=== PATIENT | female | born 1940 | race Caucasian/White ===

== ENCOUNTER 2020-09-13 17:51 | Emergency (ER) | payer MEDICARE, MEDICAID, SELFPAY ==
--- NOTE | ~2020-09-13 | CT_ITS ---
EXAMINATION: CT brain wo con DATE: 09/13/2020 18:40 INDICATION: Headache. TECHNIQUE: Computed tomography (CT) of the head was performed without intravenous contrast. The mA wa s adjusted according to patient size. Iterative reconstruction technique was employed. The dose-lengt h product was 605.33 mGy-cm. COMPARISON: Head CT 03/30/2017, brain MRI 07/02/2012 FINDINGS: There are scattered areas of low attenuation in the cerebral white matter. There is no intr acranial hemorrhage, acute infarction, or abnormal intracranial mass lesion. The ventricles are pato l in size. There is mild mucosal thickening in the paranasal sinuses. The mastoid air cells are pato l. The orbits are normal. IMPRESSION: 1. Stable mild nonspecific cerebral white matter disease, which likely represents chronic small vesse l ischemic disease. Reviewed, dictated and finalized at location A. IMPRESSION: 1. Stable mild nonspecific cerebral white matter disease, which likely represen ts chronic small vessel ischemic disease.
[2020-09-13 17:49] VITALS: BP 155/74; PULSE 61; RESP 14; TEMP 36.4; O2SAT 100
[2020-09-13 19:03] LABS: Basophils Percent Auto 0.3 % (0.2-1.2); Eosinophils Absolute Auto 0.2 K/mm3 (0-0.3); Eosinophils Percent Auto 3.2 % (0-4.4); Hematocrit 39.9 % (37.0-47.0); Hemoglobin 12.3 g/dL (12.0-15.0); Immature Granulocyte Absolute 0.01 K/mm3 (0.00-0.031); Immature Granulocyte Percent A 0.2 % (0-0.5); Lymphocytes Absolute Auto 2.75 K/mm3 (0.9-3.2); Lymphocytes Percent Auto 45.8 % (18.3-44.2); Mean Corpuscular HGB Conc 30.8 g/dl (32-36); Mean Corpuscular Volume 90.9 fl (80-100); Mean Platelet Volume 8.9 fl (7.4-10.4); Monocytes Absolute Auto 0.5 K/mm3 (0.1-0.6); Monocytes Percent Auto 7.8 % (2.6-8.5); Neutrophils Absolute Auto 2.6 K/mm3 (1.3-6.7); Neutrophils Percent Auto 42.7 % (45.5-73.1); Platelet Count Result 166 k/mm3 (150-375); Red Blood Count 4.39 M/mm3 (4.2-5.4); Red Cell Distribution Width 13.5 % (11.5-14.5)
[2020-09-13 19:12] LABS: Potassium 4.3 mmol/L (3.4-5.0)
[2020-09-13 19:19] LABS: Anion Gap 5 mmol/L (8-16); Blood Urea Nitrogen 20 mg/dL (7-17); Calcium 9.2 mg/dL (8.4-10.2); Carbon Dioxide 30 mmol/L (22-30); Chloride 102 mmol/L (98-107); Estimated Glomerular Filt Rate 48; Glucose 95 mg/dL (65-105); Sodium 137 mmol/L (137-145)
--- NOTE | 2020-09-13 19:40 | ED.HA ---
HPI - Headache General Chief Complaint: Headache Stated Complaint: Resolved MCCLURE Time Seen by Provider: 09/13/20 18:07 Source: patient Mode of arrival: EMS Limitations: no limitations History of Present Illness HPI Narrative: 80-year-old with a history of dementia, Parkinson's was brought in ambulance from [facility] with complaints of right-sided headache and blurred vision. Patient states that headache lasted for few hours however by the time she came to the ER her symptoms have much subsided. She denies previous history of headaches. No history of trauma. MD elicited complaint: headache Onset description: suddenly Location: right Severity: moderate Quality & Timing: aching Exacerbating factors: none Relieving factors: nothing Context: occurred at rest Associated symptoms: other (blurred vision) Treatments prior to arrival: none Related Data Home Medications Medication Instructions Recorded Confirmed brimonidine [Alphagan P] drp 09/13/20 09/13/20 carbidopa-levodopa tablet 09/13/20 citalopram mg 09/13/20 donepezil mg 09/13/20 dorzolamide-timolol 09/13/20 latanoprost drp 09/13/20 oxybutynin chloride mg PO 09/13/20 ropinirole mg 09/13/20 Allergies Allergy/AdvReac Type Severity Reaction Status Date / Time No Known Allergies Allergy Verified 09/13/20 18:12 Review of Systems Review of Systems: All systems reviewed & are unremarkable except as noted in HPI and below Constitutional: Constitutional: Reports no additional constitutional complaints Eyes: Eyes: Reports as per HPI ENT: Reports system reviewed and no additional complaints, except as documented Cardiovascular: Cardiovascular: Reports no additional cardiovascular complaints Respiratory: Respiratory: Reports no additional respiratory complaints Gastrointestinal: Gastrointestinal: Reports no additional gastrointestinal complaints Musculoskeletal: Musculoskeletal: Reports no additional musculoskeletal complaints Endocrine: Endocrine: Reports no additional endocrine complaints Hematologic/Lymphatic: Hematologic/Lymphatic: Reports no additional hematologic/lymphatic complaints Allergic/Immunologic: Allergic/Immunologic: Reports no additional allergic/immunologic complaints Exam Narrative: Exam Narrative: GENERAL: Well-appearing, well-nourished, and in no acute distress. HEAD: Normocephalic, atraumatic. EYES: PERRLA and EOMI. NECK: Supple. CHEST: Clear to auscultation. No respiratory distress. HEART: Regular rate and rhythm. No murmur heard. Normal peripheral pulses. ABDOMEN: Soft, nontender, nondistended, normal active bowel sounds. EXTREMITIES: Normal range of motion. No edema. SKIN: Warm, dry, no rash. NEURO: No focal deficits. Alert and oriented x3. PSYCH: Normal mood and affect. Course Course Emergency Course: Patient comfortably lying on bed in no discomfort. She states that she is feeling better the headache has resolved. I discussed labs and CT findings with the patient and the family. She does feel comfortable going home. She drank glass of water without any difficulty. Vital Signs Vital signs: Vital Signs Temperature 36.4 C 09/13/20 17:49 Pulse Rate 61 09/13/20 17:49 Respiratory Rate 14 09/13/20 17:49 Blood Pressure 155/74 H 09/13/20 17:49 Pulse Oximetry 100 09/13/20 17:49 Temperature 36.4 C 09/13/20 17:49 Pulse Rate 61 09/13/20 17:49 Respiratory Rate 14 09/13/20 17:49 Blood Pressure 155/74 H 09/13/20 17:49 Pulse Oximetry 100 09/13/20 17:49 MDM - Headache Lab Data Result diagrams: 09/13/20 18:57 09/13/20 18:57 Labs: Lab Results 09/13/20 09/13/20 Range/Units 18:57 18:57 WBC 6.0 (4.5-10.0) K/mm3 RBC 4.39 (4.2-5.4) M/mm3 Hgb 12.3 (12.0-15.0) g/dL Hct 39.9 (37.0-47.0) % MCV 90.9 (80-100) fl MCH 28.0 (26-34) pg MCHC 30.8 L (32-36) g/dl RDW 13.5 (11.5-14.5) % Plt Count 166 (150-375) k/mm3 MPV 8.9 (7.4
[2020-09-13 19:54] LABS: Erythrocyte Sedimentation Rate 18 mm/hr (0-20)
--- NOTE | 2020-09-13 20:11 | PC.NURSE ---
converse with ruth ann @ [facility], advised pt is stable to transfer by wheel chair to car and nursing staff @ [facility] will be ready with a wheelchair upon pt arrival by sons car.
--- NOTE | 2020-09-13 20:26 | PC.NURSE ---
pt has difficulty going from comod to wheel chair son has a high suv, pt is a fall risk, called ems for transport.
[2020-09-13 21:08] VITALS: BP 149/66; PULSE 71; RESP 20; O2SAT 98
== END 2020-09-13 21:50 ==
PROVIDERS: Emergency Provider Family Medicine
DX: R51.9 Headache, unspecified (principal); G20 Parkinson's disease; F03.90 Unspecified dementia, unspecified severity, without behavioral disturbance, psychotic disturbance, mood disturbance, and anxiety; R90.82 White matter disease, unspecified
CPT/HCPCS: 36415; 70450; 80048; 85025; 85652; 99284

== ENCOUNTER 2020-09-21 07:57 | Inpatient (IN) | payer MEDICARE, MEDICAID, SELFPAY ==
[2020-09-21] VITALS (30 sets, daily range): BP systolic 122–165; BP diastolic 49–94; PULSE 58–76; RESP 10–20; TEMP 36.6–37.4; O2SAT 91–100
--- NOTE | ~2020-09-21 | MR_ITS ---
EXAMINATION: MR brain/brain stem wo/w con EXAM DATE: 09/22/2020 15:44 INDICATION: Stroke, alteration of awareness. Left facial droop. TECHNIQUE: Magnetic resonance imaging (MRI) of the brain/brain stem obtained without contrast. Sagit vinayak T1, axial diffusion, gradient echo (T2*), T1, T2, FLAIR sequences obtained. Patient was then inj ected with 18 cc intravenous Multihance contrast. Axial and coronal postcontrast T1 weighted sequence s obtained. Correlation is made to head CT from yesterday. FINDINGS: Multiple scattered acute infarctions in the right middle cerebral artery distribution mostl y involving the periventricular white matter. Distribution does suggest possibility of watershed infa rctions. Additionally, the flow voids in the distal aspects of the internal carotid arteries are asym metric with the right being approximately half the caliber of the left. Proximal to the carotid sipho n the parasellar internal carotid arteries appear roughly identical in caliber. There is mild to mode rate microangiopathy. Mild to moderate central atrophy and microangiopathy. There is no acute hemorrhage seen on the T2*, a hemosiderin sensitive sequence. No intraparenchymal brain mass. The ventricles are normal in size. There are no extra-axial collections. The orbits are unremarkable. Soft tissue is unremarkable. IMPRESSION: 1. Diminished caliber to the right ICA compared to contralateral side, with transition at the caroti d siphon segment. Could indicate right carotid siphon stenosis. CTA brain could better characterize t his. 2. Scattered right MCA infarctions predominantly involving watershed regions. 3. Age-related intracranial findings. Reviewed, dictated and finalized at location A. IMPRESSION: 1. Diminished caliber to the right ICA compared to contralateral side, with tr ansition at the carotid siphon segment. Could indicate right carotid siphon romero nosis. CTA brain could better characterize this. 2. Scattered right MCA infarctions predominantly involving watershed regions. 3. Age-related intracranial findings.
--- NOTE | ~2020-09-21 | CT_ITS ---
EXAMINATION: CT brain wo con DATE: 09/21/2020 08:45 INDICATION: Left facial weakness. Altered mental status. TECHNIQUE: Computed tomography (CT) of the head was performed without intravenous contrast. The mA wa s adjusted according to patient size. Iterative reconstruction technique was employed. The dose-lengt h product was 605.33 mGy-cm. COMPARISON: Head CT 09/13/2020 FINDINGS: There are scattered areas of low attenuation in the cerebral white matter. There is worsene d low-attenuation in the right frontal and parietal lobe deep white matter. There is no intracranial hemorrhage or abnormal mass lesion. The ventricles are normal in size. There is mild mucosal thickeni ng in the paranasal sinuses. The mastoid air cells are normal. The orbits are normal. IMPRESSION: 1. Worsened low attenuation in the right frontal and parietal lobe deep white matter, likely acute or subacute infarcts. Other stable low attenuation in the white matter is likely chronic small vessel i schemic disease. Reviewed, dictated and finalized at location B. IMPRESSION: 1. Worsened low attenuation in the right frontal and parietal lobe deep white m atter, likely acute or subacute infarcts. Other stable low attenuation in the w lizeth matter is likely chronic small vessel ischemic disease.
--- NOTE | ~2020-09-21 | US_ITS ---
EXAMINATION: US carotid duplex BI EXAM DATE: 09/22/2020 10:40 INDICATION: Left facial hemiparesis. Altered mental status. TECHNIQUE: Grayscale, color and pulsed Doppler images of the cervical carotid arteries were obtained . The degree of vessel stenosis is placed in one of the following categories: normal, <50% stenosis, 50-69% stenosis, >=70% stenosis but less than near-occlusion, near-occlusion, or occlusion. Note that percent stenosis relative to normal distal artery lumen diameter is indirectly measured from velocit y measurements as described by Irving, et al. Radiology 2003; 229:340-346. There is no prior study fo r comparison. FINDINGS: RIGHT SIDE: Right common carotid artery peak systolic velocity (PSV in cm/s): 78 Right bulb/internal carotid artery peak systolic velocity (PSV in cm/s): 64 Right internal carotid artery end diastolic velocity (EDV in cm/s): 10 Right ICA/CCA peak systolic ratio: 0.7 Right external carotid artery peak systolic velocity (PSV in cm/s): 121 Right vertebral artery antegrade flow: yes There is mild carotid bulb plaque. Velocity and Doppler waveforms in the common and internal carotid arteries is normal. LEFT SIDE: Left common carotid artery peak systolic velocity (PSV in cm/s): 83 Left bulb/internal carotid artery peak systolic velocity (PSV in cm/s): 92 Left internal carotid artery end diastolic velocity (EDV in cm/s): 22 Left ICA/CCA peak systolic ratio: 1.1 Left external carotid artery peak systolic velocity (PSV in cm/s): 114 Left vertebral artery antegrade flow: yes There is no focal plaque identified. IMPRESSION: 1. Less than 50 percent stenosis in the right internal carotid artery. 2. Normal left internal carotid artery. > Reviewed, dictated and finalized at location A.
--- NOTE | 2020-09-21 08:01 | ED.AMS ---
HPI - Altered Mental Status General Chief Complaint: Altered Mental Status Stated Complaint: CHANGE IN STATUS Time Seen by Provider: 09/21/20 08:01 History of Present Illness HPI narrative: 80 yo female brought in by EMS for altered mental status and facial droop. She was in the hospital 1 week agoo for similar symptoms and at that time she had a negative head CT. She was found to have a UTI and it seems that her symptoms were attributed to this. After discharge it seems that her symptoms fluctuated somewhat. This morning when staff went to her room they found that she seemed more altered and had worsened facial droop than she had the last time she was seen at 0630 today. The patient denies any complaints at this time. Related Data Home Medications Medication Instructions Recorded Confirmed brimonidine [Alphagan P] drp BID 09/13/20 09/13/20 carbidopa-levodopa tablet TID 09/13/20 citalopram mg DAILY 09/13/20 donepezil mg HS 09/13/20 dorzolamide-timolol BID 09/13/20 latanoprost drp HS 09/13/20 oxybutynin chloride mg PO DAILY 09/13/20 ropinirole mg HS 09/13/20 amoxicillin-pot clavulanate tablet 09/21/20 aspirin [Aspir-81] 81 mg PO DAILY 09/21/20 Allergies Allergy/AdvReac Type Severity Reaction Status Date / Time No Known Allergies Allergy Unverified 09/17/20 14:21 Review of Systems Review of Systems: Narrative: limited by dementia All systems reviewed & are unremarkable except as noted in HPI and below Constitutional: Constitutional: Denies chills, Denies fever(s) and Denies weakness Eyes: Eyes: Reports no additional eye complaints Cardiovascular: Cardiovascular: Denies chest pain Respiratory: Respiratory: Denies dyspnea Gastrointestinal: Gastrointestinal: Denies abdominal pain and Denies nausea Genitourinary: Genitourinary: Reports no additional female genitourinary complaints Neurologic: Denies headache(s) [facility] Past Medical History Medical History Dementia Depression with anxiety Glaucoma Hyperlipidemia Osteoporosis Parkinsons disease Surgical History Surgical History History of cholecystectomy History of tonsillectomy and adenoidectomy Family History Family History Father Tuberculosis Hypertension Lung cancer Mother Paranoid schizophrenia Mother No problems noted. Social History Social History Social History: The patient is a resident at [facility]. She has one son, Tay Clark, who is her healthcare power of erisa attorney. Retired from office work. Lifelong nonsmoker. No alcohol or illicit substance use. Code status: Do not resuscitate. Smoking status: Never smoker Alcohol intake: never Substance use: never Spiritual care concerns: No Exam Const: General: no acute distress and alert Nutritional Appearance: well nourished Orientation/consciousness: patient oriented x3 HENMT: Head: normal to inspection and no contusions Mouth: Yes dry mucous membranes Eyes: Pupils: Equal, round and reactive pupils present EOM: EOMs intact bilaterally Resp: Effort & Inspection: normal respiratory effort Auscultation: clear to auscultation bilaterally Cardio: Rate: regular rate Rhythm: regular rhythm GI: GI Palp: Yes Soft to palpation and No Tenderness to palpation present (GI) Skin: General skin exam: normal color Rashes: no rashes Neuro: General: moves all extremities and no focal motor deficits Cranial nerves: Yes Nystagmus not present Speech: normal speech Gait exam (Neuro): Unable to assess gait Other: left sided facial droop. Course Vital Signs Vital signs: Vital Signs Pulse Rate 63 09/21/20 08:01 Respiratory Rate 16 09/21/20 08:01 Blood Pressure 150/84 H 09/21/20 08:01 Temperature 36.6 C 09/21/20 13:
--- NOTE | 2020-09-21 08:10 | ECG_ITS ---
Measurements Intervals [place] Rate: 58 P: 51 DE: 195 QRS: 3 QRSD: 95 T: 110 QT: 419 QTc: 415 Interpretive Statements SINUS BRADYCARDIA LOW QRS VOLTAGE IN PRECORDIAL LEADS BORDERLINE ST-T WAVE ABNORMALITY- ANT/HIGH LAT LEADS BORDERLINE ECG Electronically Signed On 09-21-2020 13:51:44 CDT by Alex Denton D.O.
[2020-09-21] MEDS: SODIUM CHLORIDE 0.9% IV 500 ML 999 ML IV CONT (09:06)
[2020-09-21 09:29] LABS: Add Urine Microscopic? NO; Appearance Urine Clear (Clear); Bilirubin Urine Negative (Negative); Blood Urine Negative (Negative); Color Urine Yellow (Yellow); Glucose Urine UA Negative (Negative); Ketones Urine Negative (Negative); Leukocyte Esterase Ur Negative LEU/UL (Negative); Nitrate Urine Negative (Negative); Protein Urine Negative (Negative); Specific Grav Ur 1.011 (1.001-1.035); Urobilinogen Urine Negative mg/dL (<2.0)
[2020-09-21] MEDS: ASPIRIN 81 MG CHEWABLE TABLET 324 MG PO (09:37)
[2020-09-21 10:03] LABS: Basophils Percent Auto 0.2 % (0.2-1.2); Eosinophils Absolute Auto 0.2 K/mm3 (0-0.3); Eosinophils Percent Auto 3.3 % (0-4.4); Hemoglobin 13.6 g/dL (12.0-15.0); Immature Granulocyte Absolute 0.01 K/mm3 (0.00-0.031); Immature Granulocyte Percent A 0.2 % (0-0.5); Lymphocytes Absolute Auto 1.62 K/mm3 (0.9-3.2); Lymphocytes Percent Auto 35.6 % (18.3-44.2); Mean Corpuscular HGB Conc 30.2 g/dl (32-36); Mean Corpuscular Hemoglobin 27.7 pg (26-34); Mean Corpuscular Volume 91.6 fl (80-100); Mean Platelet Volume 9.2 fl (7.4-10.4); Monocytes Absolute Auto 0.3 K/mm3 (0.1-0.6); Monocytes Percent Auto 5.9 % (2.6-8.5); Neutrophils Absolute Auto 2.5 K/mm3 (1.3-6.7); Neutrophils Percent Auto 54.8 % (45.5-73.1); Platelet Count Result 199 k/mm3 (150-375); Red Blood Count 4.91 M/mm3 (4.2-5.4); Red Cell Distribution Width 13.3 % (11.5-14.5); White Blood Count 4.6 K/mm3 (4.5-10.0)
[2020-09-21 10:08] LABS: Potassium 4.2 mmol/L (3.4-5.0)
[2020-09-21 10:12] LABS: Alanine Aminotransferase 24 U/L (4-35); Alkaline Phosphatase 85 U/L (38-126); Anion Gap 2 mmol/L (8-16); Aspartate Amino Transferase 33 U/L (14-36); Bilirubin,Total 0.3 mg/dL (0.2-1.3); Blood Urea Nitrogen 18 mg/dL (7-17); Calcium 9.4 mg/dL (8.4-10.2); Carbon Dioxide 35 mmol/L (22-30); Chloride 105 mmol/L (98-107); Estimated CRCL calculation 51 ml/min; Estimated Glomerular Filt Rate 60; Glucose 98 mg/dL (65-105); Sodium 142 mmol/L (137-145)
--- NOTE | 2020-09-21 13:29 | ECHO_ITS ---
Patient Info Name: Barbara Clark Age: 80 years : 1940 Gender: Female Ht: 67 in Wt: 199 lbs BSA: 2.09 m2 HR: 68 bpm BP: 160 / 83 mmHg Heart Rhythm: Sinus Rhythm Technical Quality: Good Exam Date: 09/21/2020 4:09 PM Exam Location: [facility] Pulmonary Exam Room: 324 Patient Status: Inpatient Admit Date: 09/21/2020 Staff Ordering Physician: Yulia Myrick PA-C Sleeping Car Conductor: Trinity Kothari RDCS Attending Provider: Melina Linda MD Referring Physician: Ramez HOANG; Exam Type: CA echo doppler w bubble study Study Info Indications - cva hx/o dementia/ parkinsons Complete two-dimensional, color flow and Doppler transthoracic echocardiogram is performed with agitated saline. Contrast/Agitated Saline Contrast/Ag. Saline: Agitated Saline Amount: 20.00 ml Administered By: Judith Villegas RN Existing IV Access: Yes IV Access Condition: patent with no signs of infiltration Summary 1. Left ventricular chamber dimension is normal. 2. Ventricular septum is sigmoid shaped. No LVOT obstruction. 3. Left ventricular systolic function is normal, estimated at 60-65%. 4. There is mildly increased left ventricular wall thickness. 5. The left ventricular diastolic function is grade I diastolic dysfunction. 6. E/e' 9 is minimally elevated. 7. Agitated saline injection with and without valsalva maneuver opacified right cardiac chambers and a few bubbles shunted to left cardiac chambers with valsalva only suggesting small patent foramen ovale. 8. There is mild aortic valve regurgitation. 9. There is trace mitral valve regurgitation. 10. There is trace tricuspid valve regurgitation. Left Ventricle Ventricular septum is sigmoid shaped. No LVOT obstruction. E/e' 9 is minimally elevated. Left ventricular chamber dimension is normal. Left ventricular systolic function is normal, estimated at 60-65%. There is mildly increased left ventricular wall thickness. The left ventricular diastolic function is grade I diastolic dysfunction. Right Ventricle Right ventricular chamber dimension is normal. Right ventricular systolic function is normal. Left Atria Left atrial chamber dimension is normal. Right Atria Right atrial chamber dimension is normal. Atrial Septum Agitated saline injection with and without valsalva maneuver opacified right cardiac chambers and a few bubbles shunted to left cardiac chambers with valsalva only suggesting small patent foramen ovale. Suspected patent foramen ovale visualized by agitated saline imaging. Aortic Valve The aortic valve is trileaflet. There is no aortic valve stenosis. There is mild aortic valve regurgitation. Pulmonic Valve There is no pulmonic regurgitation. Mitral Valve There is no mitral valve stenosis. There is trace mitral valve regurgitation. Tricuspid Valve RVSP is not calculated due to an inadequate TR jet. There is trace tricuspid valve regurgitation. Pericardium/Pleural There is no pericardial effusion. Inferior Vena Cava Normal inferior vena cava with >50% collapse upon inspiration consistent with normal right atrial pressure, 5 mmHg. Aorta The aortic root size at the sinus of Valsalva is normal. Left Ventricular Outflow Tract Name Value Normal
--- NOTE | 2020-09-21 14:00 | PM.IMHP ---
H&P: HPI History of Present Illness Date/Time: 09/21/20 14:00 Chief Complaint: ?Left facial droop.? Narrative: This is an 80-year-old female with dementia and Parkinson's who presented to the emergency department earlier today via EMS from a local [facility] for evaluation of ?worsened left facial droop.? She is alert and oriented x3 however is confused regarding situation and she seems to suffer from short-term memory loss and as such some of the following history is supplemented via a review of her electronic medical records as well as discussions with her son Tay. She was seen in the ER on 09/13/2020 with headache and blurred vision and at that time brain CT was unremarkable for acute process. The patient felt better within a few hours and she was discharged. Since that time she reportedly has been more confused with a more pronounced left facial droop and she was brought back in today. Brain CT today showed worsening areas of low attenuation in the right frontal and parietal lobes consistent with acute versus subacute infarcts. Currently she has no complaints aside from a mild, generalized headache. She denies vertigo, auditory and visual changes, focal weakness (although she is noted to be weak on left side), and paresthesias. No known history of hypertension or atrial fibrillation. Review of Systems Review of Systems: Narrative: Twelve systems were reviewed with pertinent positives and negatives as per HPI. She denies fever, chills, and sweats. No recent cold or flu symptoms. No chest pain, pleuritic pain, or palpitations. She denies cough and shortness of breath. No nausea, vomiting, or diarrhea. Frequently constipated. No dysuria. Except as documented, all other systems were reviewed and are negative. [facility] Past Medical History Medical History (Updated 09/21/20 @ 14:02 by Yulia Myrick PA-C) Dementia Depression with anxiety Glaucoma Hyperlipidemia Osteoporosis Parkinsons disease Surgical History Surgical History History of cholecystectomy History of tonsillectomy and adenoidectomy Family History Family History (Updated 09/21/20 @ 13:23 by Yulia Myrick PA-C) Father Tuberculosis Social History Social History (Updated 09/21/20 @ 14:09 by Yulia Myrick PA-C) Social History: The patient is a resident at [facility]. She has one son, Tay Clark, who is her healthcare power of attorney lawyer. Retired from office work. Lifelong nonsmoker. No alcohol or illicit substance use. Code status: Do not resuscitate. Meds Home Medications and Allergies Home Medications Medication Instructions Recorded Confirmed Type brimonidine [Alphagan P] drp BID 09/13/20 09/13/20 History carbidopa-levodopa tablet TID 09/13/20 History citalopram mg DAILY 09/13/20 History donepezil mg HS 09/13/20 History dorzolamide-timolol BID 09/13/20 History latanoprost drp HS 09/13/20 History oxybutynin chloride mg PO DAILY 09/13/20 History ropinirole mg HS 09/13/20 History amoxicillin-pot clavulanate tablet 09/21/20 History aspirin [Aspir-81] 81 mg PO DAILY 09/21/20 History Allergies Allergy/AdvReac Type Severity Reaction Status Date / Time No Known Allergies Allergy Unverified 09/17/20 14:21 Vital Signs Vital Signs - 24 hr 09/21/20 08:01 09/21/20 08:02 09/21/20 08:04 Temperature 98.3 F Pulse Rate 63 58 L 58 L Respiratory Rate 16 20 12 Blood Pressure 150/84 H 150/84 H Pulse Oximetry 98 09/21/20 08:15 09/21/20 08:16 09/21/20 08:30 Temperature Pulse Rate 64 62 59 L Respiratory Rate 12 14 13 Blood Pressure 122/61 Pulse Oximetry 91 93 09/21/20 08:31 09/21/20 08:50 09/21/20 08:51 Temperature Pulse Rate 58 L 58 L 66 Respiratory Rate 15 10 L 15 Blood Pressure 153/72 H 151/81 H Pulse Oximetry 95 97 09/21/20 09:00 09/21/20 09:01 09/21/20 09:15 Temperature Pulse Rate 60 61 71 Respiratory Rate 12 10 L
--- NOTE | 2020-09-21 14:27 | WPDNEURCNPN ---
Assessment and Plan Assessment and plan (1) Cerebrovascular accident: Code(s): I63.9 - Cerebral infarction, unspecified Status: Acute (2) Dementia: Code(s): F03.90 - Unspecified dementia without behavioral disturbance Status: Acute Additional Plan evolving stroke patient receiving aspirin 81 mg daily in addition to her medication for Parkinson's disease that is carbidopa levodopa 25/100 3 times a day in addition to donepezil her dementia and other medication as well treatment will be continued as such she will benefit from the physical therapy Consult date: 09/21/20 Time Seen: 14:00 HPI: Barbara Clark is a 80 year old [id number] years old lady has been admitted to [facility] with the ongoing diagnosis of dementia with Parkinson's disease for the complaints of left facial droop on initial evaluation she was awake alert oriented x3 reportedly more confused she was initially seen in the emergency room on September 13, 2020 with the complaints of headache and blurred vision at that time her CT scan of the head was negative she felt better within few hours and was discharged but subsequently she has become more confused has developed more pronounced left facial droop and was brought back to the hospital on initial evaluation she was found to have low attenuation in the right frontal and parietal lobe consistent with the acute or subacute stroke but she was also complaining of generalized headache he was noted to be somewhat weak on the left side a previous problems as mentioned above includes the dementia, anxiety with depression, hyperlipidemia, osteoporosis, and Parkinson's disease, in addition to glaucoma. She has undergone cholecystectomy pertinent investigations include mildly elevated BUN, GFR of 48 normal CBC negative UA and CT scan showing the right frontal and parietal lobe deep white matter subacute infarct Review of Systems Review of Systems: All systems reviewed & are unremarkable except as noted in HPI and below PMFSH Past Medical History Medical History Dementia Depression with anxiety Glaucoma Hyperlipidemia Osteoporosis Parkinsons disease Surgical History Surgical History History of cholecystectomy History of tonsillectomy and adenoidectomy Family History Family History Father Tuberculosis Social History Social History Social History: The patient is a resident at [facility]. She has one son, Tay Clark, who is her healthcare power of personal injury attorney. Retired from office work. Lifelong nonsmoker. No alcohol or illicit substance use. Code status: Do not resuscitate. Meds Home Medications and Allergies Home Medications Medication Instructions Recorded Confirmed Type brimonidine [Alphagan P] drp BID 09/13/20 09/13/20 History carbidopa-levodopa tablet TID 09/13/20 History citalopram mg DAILY 09/13/20 History donepezil mg HS 09/13/20 History dorzolamide-timolol BID 09/13/20 History latanoprost drp HS 09/13/20 History oxybutynin chloride mg PO DAILY 09/13/20 History ropinirole mg HS 09/13/20 History amoxicillin-pot clavulanate tablet 09/21/20 History aspirin [Aspir-81] 81 mg PO DAILY 09/21/20 History Allergies Allergy/AdvReac Type Severity Reaction Status Date / Time No Known Allergies Allergy Unverified 09/17/20 14:21 Vital Signs Vital Signs - 24 hr 09/21/20 08:01 09/21/20 08:02 09/21/20 08:04 Temperature 36.8 C Pulse Rate 63 58 L 58 L Respiratory Rate 16 20 12 Blood Pressure 150/84 H 150/84 H Pulse Oximetry 98 09/21/20 08:15 09/21/20 08:16 09/21/20 08:30 Temperature Pulse Rate 64 62 59 L Respiratory Rate 12 14 13 Blood Pressure 122/61 Pulse Oximetry 91 93 09/21/20 08:31 09/21/20 08:50 09/21/20 08:51 Temperature Pulse Rate 58 L 58 L
--- NOTE | 2020-09-21 14:44 | PCSTNOTE ---
Please refer to the Bedside Swallow Evaluation in the EMR. Please note, silent aspiration cannot be ruled out at bedside.
--- NOTE | 2020-09-21 17:06 | ADMGEN ---
This patient, Barbara Clark, was admitted to 3 Med Surg Room 324-01 ay 1255. Report received from Liset. Patient/family oriented to hospital policies and general routines including ID bracelet, bed and alarms, visiting hours, pain management, procedures, bathroom and other care routines, personal items, smoking policy, room service/diet, and visiting hours. Information on how to activate the Rapid Response Team has been discussed. Patient/Family are encouraged to report perceived risks to care and to ask questions if they do not understand what they are told or what they should do.
[2020-09-21] MEDS: DONEPEZIL HCL 10 MG TABLET PO (22:38)
[2020-09-21] MEDS: MAGNESIUM OXIDE 400 MG TABLET 800 MG PO (22:38)
[2020-09-21] MEDS: rOPINIRole HCL 0.5 MG TABLET PO (22:38)
[2020-09-21] MEDS: DORZOLAMIDE/TIMOLOL OPHTH SOL 10 ML BOTTLE 1 DROP EACH EYE (22:39)
[2020-09-21] MEDS: CARBIDOPA/LEVODOPA 25/100 MG TABLET 1 TABLET PO (22:39)
[2020-09-21] MEDS: MAGNESIUM OXIDE 200 MG TABLET PO (22:39)
[2020-09-21] MEDS: ASPIRIN 81 MG ENTERIC TABLET PO (22:39)
[2020-09-21] MEDS: BRIMONIDINE TARTRATE 0.1% 5 ML OPHTH DROPS 1 DROP EACH EYE (22:40)
[2020-09-21] MEDS: LATANOPROST 0.005% OP SOLN 2.5 ML BTL 1 DROP EACH EYE (22:40)
[2020-09-22] VITALS (10 sets, daily range): BP systolic 114–125; BP diastolic 61–87; PULSE 52–93; RESP 16–18; TEMP 36.2–36.9; O2SAT 94–96
[2020-09-22 06:38] LABS: Anion Gap 2 mmol/L (8-16); Blood Urea Nitrogen 18 mg/dL (7-17); Calcium 9.2 mg/dL (8.4-10.2); Carbon Dioxide 31 mmol/L (22-30); Chloride 108 mmol/L (98-107); Cholesterol 172 mg/dL (0-200); Estimated CRCL calculation 43 ml/min; Estimated Glomerular Filt Rate 53; Glucose 95 mg/dL (65-105); HDL Direct 34 mg/dL; Magnesium 2.2 mg/dL (1.6-2.3); Potassium 4.2 mmol/L (3.4-5.0); Sodium 141 mmol/L (137-145); Triglycerides 120 mg/dL (<150)
[2020-09-22 06:49] LABS: LDL Cholesterol Direct 101 mg/dL
[2020-09-22] MEDS: CITALOPRAM HYDROBROMIDE 20 MG TABLET PO (08:22)
[2020-09-22] MEDS: CARBIDOPA/LEVODOPA 25/100 MG TABLET 1 TABLET PO ×3 (08:22→17:52)
[2020-09-22] MEDS: DOCUSATE SODIUM 100 MG CAPSULE PO (08:22)
[2020-09-22] MEDS: BRIMONIDINE TARTRATE 0.1% 5 ML OPHTH DROPS 1 DROP EACH EYE ×2 (08:23→20:16)
[2020-09-22] MEDS: DORZOLAMIDE/TIMOLOL OPHTH SOL 10 ML BOTTLE 1 DROP EACH EYE ×2 (08:23→20:16)
[2020-09-22] MEDS: MULTIVITAMINS THERAPEUTIC TAB (*BKC) 1 TABLET PO (11:16)
--- NOTE | 2020-09-22 12:50 | WPDNEURCNPN ---
Assessment and Plan Assessment and plan (1) Acute ischemic stroke: Code(s): I63.9 - Cerebral infarction, unspecified Status: Acute Additional Plan right hemispheric stroke, echocardiogram showing few bubbles crossing the septum through the patent foramen ovale to the left side, carotid Dopplers study pending, patient is receiving aspirin, will obtain the cardiology consultation Consult date: 09/22/20 Time Seen: 12:45 HPI: Barbara Clark is a 80 year old female seen yesterday for evolving stroke in addition to the underlying multiple medical problems particularly dementia with Parkinson's disease CT scan definitely abnormal with right frontoparietal deep white matter subacute stroke , carotid Doppler studies pending but echocardiogram revealed right cardiac chambers and few bubbles shunted to the left cardiac chamber with Valsalva suggesting the small patent foramina ovale patient is receiving aspirin only will obtain the cardiology consultation to see if they want to pursue further with all the underlying medical problems Review of Systems Review of Systems: All systems reviewed & are unremarkable except as noted in HPI and below PMFSH Past Medical History Medical History Dementia Depression with anxiety Glaucoma Hyperlipidemia Osteoporosis Parkinsons disease Surgical History Surgical History History of cholecystectomy History of tonsillectomy and adenoidectomy Family History Family History Father Tuberculosis Hypertension Lung cancer Mother Paranoid schizophrenia Mother No problems noted. Social History Social History Social History: The patient is a resident at [facility]. She has one son, Tay Clark, who is her healthcare power of shank rander. Retired from office work. Lifelong nonsmoker. No alcohol or illicit substance use. Code status: Do not resuscitate. Smoking status: Never smoker Alcohol intake: never Substance use: never Spiritual care concerns: No Meds Home Medications and Allergies Home Medications Medication Instructions Recorded Confirmed Type carbidopa-levodopa 1 tablet PO TID 09/13/20 09/21/20 History citalopram 20 mg PO DAILY 09/13/20 09/21/20 History donepezil 10 mg PO HS 09/13/20 09/21/20 History dorzolamide-timolol 1 drp EACH EYE BID 09/13/20 09/21/20 History latanoprost 1 drp EACH EYE HS 09/13/20 09/21/20 History oxybutynin chloride 15 mg PO DAILY 09/13/20 09/21/20 History ropinirole 0.5 mg PO HS 09/13/20 09/21/20 History Vitamin B-12 1,000 mcg IM MONTHLY 09/21/20 09/21/20 History amoxicillin-pot clavulanate 1 tablet PO Q12H 09/21/20 09/21/20 History aspirin [Aspir-81] 81 mg PO HS 09/21/20 09/21/20 History brimonidine [Alphagan P] 1 drp EACH EYE BID 09/21/20 09/21/20 History calcium citrate-vitamin D3 1 tablet PO DAILY 09/21/20 09/21/20 History dextromethorphan-guaifenesin 10 ml PO Q6H PRN 09/21/20 09/21/20 History docusate sodium 100 mg PO DAILY 09/21/20 09/21/20 History hydrocortisone [Anusol-HC] 1 applic RECTAL TID PRN 09/21/20 09/21/20 History loperamide 2 mg PO PRN PRN 09/21/20 09/21/20 History loratadine 10 mg PO DAILY PRN 09/21/20 09/21/20 History magnesium oxide 1,000 mg PO HS 09/21/20 09/21/20 History multivitamin [Daily Multivitamin] 1 tablet PO DAILY 09/21/20 09/21/20 History naproxen 250 mg PO BID PRN 09/21/20 09/21/20 History Allergies Allergy/AdvReac Type Severity Reaction Status Date / Time No Known Allergies Allergy Unverified 09/17/20 14:21 Vital Signs Vital Signs - 24 hr 09/21/20 13:23 09/21/20 20:00 09/21/20 21:23 Temperature 36.6 C 37.4 C Pulse Rate 59 L 59 L 76 Respiratory Rate 18 18 Blood Pressure 160/83 H 129/49 L Pulse Oximetry 93 95 09/22/20 00:00 09/22/20 04:00 09/22/20 06:00 Temperature 36.9 C Pulse Rate
--- NOTE | 2020-09-22 13:51 | PM.IMPN ---
Progress Note: A&P Assessment and Plan (1) Cerebrovascular accident: Code(s): I63.9 - Cerebral infarction, unspecified Status: Acute Assessment and Plan: 09/22/20 13:51 Patient 80-year-old female with recurrent CV presented with right hemispheric stroke, cardiac echo showed few bubbles crossing the septum through the patent foramen ovale to the left side, patient seen by Neurology recommending cardiology consult is patient may recall systematic anticoagulation and may benefit from cardia surgical evaluation, patient is clinically stable will continue to monitor. Will have a PT OT evaluate the patient patient will benefit from acute rehab (2) Elevated blood pressure reading: Code(s): R03.0 - Elevated blood-pressure reading, without diagnosis of hypertension Status: Acute Assessment and Plan: most likely secondary to stress as patient blood pressure is trending down will permissively monitor (3) Parkinsons disease: Code(s): G20 - Parkinson's disease Status: Acute Assessment and Plan: Will continue home regimen (4) Dementia: Code(s): F03.90 - Unspecified dementia without behavioral disturbance Status: Acute Assessment and Plan: Patient clinically stable no agitation (5) Glaucoma: Code(s): H40.9 - Unspecified glaucoma Status: Chronic Assessment and Plan: Will continue home regimen Additional Plan The patient presents today with reported worsening left-sided facial droop over the past week. Brain CT shows acute or subacute infarctions in the right frontal and parietal lobe deep white matter. She will be monitored on telemetry to rule out cardiac dysrhythmia. Blood pressures have been running high although she believes that is due to anxiety of being in the hospital as she has never had high blood pressure before. At this time we will monitor her blood pressures closely overnight and may very well start her on low-dose amlodipine this evening if her systolic pressures stay in the high 150s to 160s. Echocardiogram, carotid Doppler ultrasound, and brain MRI have been ordered as well for further evaluation. Continue neurologic checks q.4 hours. She is on a baby aspirin daily and that will be continued; may consider the addition of clopidogrel. Check fasting lipids in a.m. PT/OT/ST consulted. Subjective Date/time seen: 09/22/20 13:51 Patient 80-year-old female with recurrent CV presented with right hemispheric stroke, cardiac echo showed few bubbles crossing the septum through the patent foramen ovale to the left side, patient seen by Neurology recommending cardiology consult is patient may recall systematic anticoagulation and may benefit from cardia surgical evaluation, patient is clinically stable will continue to monitor. Will have a PT OT evaluate the patient patient will benefit from acute rehab Review of Systems Review of Systems: ROS unobtainable: Yes unobtainable due to medical condition Exam Narrative: Exam Narrative: Elderly frail Patient is comfortable, NAD HEENT: eyes are clear and none icteric LUNGS:CTA HEART: RR S1S2 ABD: BS+, Soft and nontender Lower extremities: no edema SKIN: nonjaundiced Neuro: Somnolent. Objective Data Vital Signs Vital Signs: Vital Signs - 24 hr 09/21/20 20:00 09/21/20 21:23 09/22/20 00:00 Temperature 99.4 F Pulse Rate 59 L 76 64 Respiratory Rate 18 Blood Pressure 129/49 L Pulse Oximetry 95 09/22/20 04:00 09/22/20 06:00 09/22/20 08:00 Temperature 98.5 F Pulse Rate 62 69 70 Respiratory Rate 16 Blood Pressure 125/87 Pulse Oximetry 96 09/22/20 09:24 Temperature Pulse Rate Respiratory Rate Blood Pressure Pulse Oximetry 96 Intake/Output Intake/Output: Intake & Output 09/19/20 09/20/20 09/21/20 09/22/20 23:59 23:59 23:59 23:59 Intake Total 500 50 Output Total 3 Balance 500 47 Meds/Results Medications: Active Medications Generi
[2020-09-22] MEDS: MAGNESIUM OXIDE 400 MG TABLET 800 MG PO (20:15)
[2020-09-22] MEDS: ASPIRIN 81 MG ENTERIC TABLET PO (20:15)
[2020-09-22] MEDS: DONEPEZIL HCL 10 MG TABLET PO (20:15)
[2020-09-22] MEDS: rOPINIRole HCL 0.5 MG TABLET PO (20:15)
[2020-09-22] MEDS: LATANOPROST 0.005% OP SOLN 2.5 ML BTL 1 DROP EACH EYE (20:15)
[2020-09-22] MEDS: MAGNESIUM OXIDE 200 MG TABLET PO (20:15)
[2020-09-23] VITALS (9 sets, daily range): BP systolic 120–135; BP diastolic 51–80; PULSE 57–79; RESP 16–18; TEMP 36.2–36.6; O2SAT 92–98
[2020-09-23 07:02] LABS: Hemoglobin 12.9 g/dL (12.0-15.0); Mean Corpuscular HGB Conc 32.3 g/dl (32-36); Mean Corpuscular Hemoglobin 28.2 pg (26-34); Mean Corpuscular Volume 87.5 fl (80-100); Platelet Count Result 188 k/mm3 (150-375); Red Blood Count 4.57 M/mm3 (4.2-5.4); Red Cell Distribution Width 13.2 % (11.5-14.5); White Blood Count 7.5 K/mm3 (4.5-10.0)
[2020-09-23 07:11] LABS: Anion Gap 2 mmol/L (8-16); Blood Urea Nitrogen 16 mg/dL (7-17); Calcium 9.4 mg/dL (8.4-10.2); Carbon Dioxide 32 mmol/L (22-30); Chloride 105 mmol/L (98-107); Estimated CRCL calculation 43 ml/min; Estimated Glomerular Filt Rate 53; Glucose 89 mg/dL (65-105); Potassium 4.2 mmol/L (3.4-5.0); Sodium 139 mmol/L (137-145)
[2020-09-23] MEDS: DORZOLAMIDE/TIMOLOL OPHTH SOL 10 ML BOTTLE 1 DROP EACH EYE ×2 (08:09→22:51)
[2020-09-23] MEDS: BRIMONIDINE TARTRATE 0.1% 5 ML OPHTH DROPS 1 DROP EACH EYE ×2 (08:09→22:52)
[2020-09-23] MEDS: CARBIDOPA/LEVODOPA 25/100 MG TABLET 1 TABLET PO ×3 (08:09→16:59)
[2020-09-23] MEDS: MULTIVITAMINS THERAPEUTIC TAB (*BKC) 1 TABLET PO (08:10)
[2020-09-23] MEDS: DOCUSATE SODIUM 100 MG CAPSULE PO (08:10)
[2020-09-23] MEDS: CITALOPRAM HYDROBROMIDE 20 MG TABLET PO (08:10)
--- NOTE | 2020-09-23 10:59 | PM.CNCAR ---
Assessment and Plan Assessment and plan (1) Acute ischemic stroke: Code(s): I63.9 - Cerebral infarction, unspecified Status: Acute Assessment and Plan: Acute stroke, with 2 areas noted in the right brain affected. This may be due to the right-sided vascular disease (she has mild right carotid disease) or perhaps there is underlying paroxysmal atrial fibrillation, though none has been seen on telemetry so far. This CVA occurred while the patient has been taking aspirin. In view of this, it is certainly reasonable to switch patient to anticoagulation or add Plavix for month. The former may be a better option since occult PAF is common in this age range. Recommend adding a statin as well. (2) Patent foramen ovale: Code(s): Q21.1 - Atrial septal defect Status: Acute Assessment and Plan: Very small PFO noted by bubble study which is likely inconsequential and an incidental finding. In general it was felt that most strokes in older individuals are not due to their PFO but due to problems associated with aging such as vascular disease, atrial fib and hypertension. This PFO also sounds quite small. Doubt there is any contribution to her stroke. Would not pursue or treat the PFO. (3) Parkinsons disease: Code(s): G20 - Parkinson's disease Status: Acute Assessment and Plan: With some dementia. Additional Plan Thank you for asking us to participate in the care of this unfortunate lady. I will sign off but please call if we can be of further assistance. History of Present Illness History of Present Illness Consult date/time: 09/23/20 10:59 Requesting physician: Jem Fernandes MD Reason For Visit: Ischemic stroke Narrative: Barbara Clark is an 80-year-old female whom we were asked to see at the request of Dr. Fernandes for our advice and opinion regarding her stroke and patent foramen ovale. Patient lives in a usp with dementia and Parkinson's. She was admitted with a facial droop and a stroke. CT scan showed acute versus subacute infarcts in the right frontal and parietal lobes. Echo showed a small patent foramen ovale with a shunting of a few bubbles. Carotid ultrasound showed mild disease of the right ICA. MRI suggested there may be some vascular disease. Telemetry shows sinus rhythm. The patient denies any shortness of breath, palpitations or chest pain, and denies any history of heart disease. She gets around with a walker. No history of hypertension, AFib or heart disease. No h/o GI bleeding. Walks w/ a walker; unknown if she has falls. Review of Systems Review of Systems: Narrative: Review of systems limited by the patient's poor memory obtained from the chart as well. Constitutional: Constitutional: Reports fatigue and Reports weakness Eyes: Eyes: Reports no additional eye complaints ENT: Denies epistaxis Cardiovascular: Cardiovascular: Denies chest pain, Denies pedal edema, Denies leg edema, Denies lightheadedness and Denies palpitations Respiratory: Respiratory: Denies dyspnea and Denies dyspnea on exertion Gastrointestinal: Gastrointestinal: Denies abdominal pain Genitourinary: Genitourinary: Reports no additional female genitourinary complaints Musculoskeletal: Musculoskeletal: Denies back pain and Denies neck pain Integumentary/Breasts: Skin/Breast: Denies rash Neurologic: Reports confusion (Some memory loss) Psychiatric: Psychiatric: Reports no additional psychiatric complaints PMFSH Past Medical History Medical History Dementia Depression with anxiety Glaucoma Hyperlipidemia Osteoporosis Parkinsons disease Surgical History Surgical History (Reviewed 09/23/20 @ 11:59 by Sukumar
--- NOTE | 2020-09-23 12:36 | WPDNEUROPN ---
Progress Note: A&P Additional Plan stable will be involved in the rehab Review of Systems Review of Systems: All systems reviewed & are unremarkable except as noted in HPI and below Exam Const: General: cooperative, comfortable and no acute distress Nutritional Appearance: obese Orientation/consciousness: oriented to person and oriented to place Limitations: physical limitations HENMT: Head: normal to inspection Ears: hearing grossly normal bilaterally General nose exam: Normal external nose present Face and sinus: normal facial exam Mouth: Yes Normal oral and palatal mucosa present Eyes: General: appearance normal, both eyes and all related structures Visual [place]: abnormal by confrontation Alignment and Position: alignment normal Periorbital: periorbital findings normal Eyelids: eyelids normal Conjunctivae: conjunctivae normal Sclera: sclerae normal Cornea: corneas normal Pupils: Equal, round and reactive pupils present EOM: EOMs intact bilaterally Neck: Neck: full ROM Resp: Auscultation: clear to auscultation bilaterally Cardio: Rate: regular rate GI: Auscultation: normal bowel sounds Skin: General skin exam: no rashes or lesions noted Neuro: General: oriented to person and oriented to place Cranial nerves: Yes Bilaterally intact EOM present, Yes Nystagmus not present, Yes Normal facial strength present, Yes Midline tongue present, Yes Symmetric palate elevation present and Yes Normal hearing present Speech: normal speech Gait exam (Neuro): Unable to assess gait Motor exam (neuro): Abnormal motor strength present Sensory Exam: Sensory deficit (Neuro) Deep tendon reflexes (DTR's): Right triceps reflex intensity grade: 1+, Left triceps reflex intensity grade: 2+, Rt Biceps (C5, C6): 1+, Left biceps reflex intensity grade: 2+, Right brachioradialis reflex intensity grade: 1+, Left brachioradialis reflex intensity grade: 2+, Right patellar reflex intensity grade: 1+, Left patellar reflex intensity grade: 2+, Right ankle reflex intensity grade: 1+ and Left ankle reflex intensity grade: 2+ Plantar Reflex Responses: downgoing: right and upgoing (positive Babinski): left Psych: Speech and movement: Clear speech present Affect: Sad affect present Attitude: cooperative Thought process: Normal thought process present Thought content: Yes Normal thought content present Insight: Fair insight present (Psych) Judgement: Fair judgement present (Psych) Objective Data Vital Signs Vital Signs: Vital Signs - 24 hr 09/22/20 14:00 09/22/20 16:00 09/22/20 20:00 Temperature 36.4 C Pulse Rate 58 L 70 63 Respiratory Rate 18 Blood Pressure 114/66 Pulse Oximetry 95 09/22/20 22:00 09/23/20 00:00 09/23/20 04:00 Temperature 36.2 C L Pulse Rate 93 70 57 L Respiratory Rate 18 Blood Pressure 124/61 Pulse Oximetry 94 09/23/20 06:00 09/23/20 08:00 Temperature 36.3 C L Pulse Rate 72 66 Respiratory Rate 16 Blood Pressure 120/51 L Pulse Oximetry 98 Intake/Output Intake/Output: Intake & Output 09/20/20 09/21/20 09/22/20 09/23/20 23:59 23:59 23:59 23:59 Intake Total 500 50 195 Output Total 3 Balance 500 47 195 Meds/Results Medications: Active Medications Generic Name Dose Route Start Last Admin Trade Name Freq PRN Reason Stop Dose Admin Aspirin 81 mg 09/21/20 21:30 09/22/20 20:15 Aspirin 81 Mg Enteric Tablet PO 81 mg HS JONO Administration Brimonidine Tartrate 1 drop 09/21/20 21:30 09/23/20 08:09 Brimonidine Tartrate 0.1% 5 Ml Ophth Drops EACH EYE 1 drop Q12HR JONO Administration Calcium Citrate 1 tablet 09/22/20 09:00 09/23/20 08:10 Calcium Citrate 315 Mg/Vitamin D 250 Units Tab PO 1 tablet QAM JONO Administration Carbidopa/Levodopa 1 tablet 09/21/20 21:30 09/23/20 12:20 Carbidopa/Levodopa 25/100 Mg Tablet PO 1 tablet TIDWM JONO Administration Citalopram Hydrobromide 20 mg 09/22/20 09:00 09/23/20 08:10 Citalopram Hydrobromide
--- NOTE | 2020-09-23 13:06 | PM.IMPN ---
Progress Note: A&P Assessment and Plan (1) Cerebrovascular accident: Code(s): I63.9 - Cerebral infarction, unspecified Status: Acute Assessment and Plan: 09/23/20 13:06 The patient presents today with reported worsening left-sided facial droop over the past week. Brain CT shows acute or subacute infarctions in the right frontal and parietal lobe deep white matter. She will be monitored on telemetry to rule out cardiac dysrhythmia. Blood pressures have been running high although she believes that is due to anxiety of being in the hospital as she has never had high blood pressure before. At this time we will monitor her blood pressures closely overnight and may very well start her on low-dose amlodipine this evening if her systolic pressures stay in the high 150s to 160s. Echocardiogram, carotid Doppler ultrasound, and brain MRI have been ordered as well for further evaluation. Continue neurologic checks q.4 hours. She is on a baby aspirin daily and that will be continued; may consider the addition of clopidogrel. Check fasting lipids in a.m. PT/OT/ST consulted. 09/22 Patient 80-year-old female with recurrent CV presented with right hemispheric stroke, cardiac echo showed few bubbles crossing the septum through the patent foramen ovale to the left side, patient seen by Neurology recommending cardiology consult is patient may recall systematic anticoagulation and may benefit from cardia surgical evaluation, patient is clinically stable will continue to monitor. Will have a PT OT evaluate the patient patient will benefit from acute rehab 09/23 Patient remains clinically stable and still confused, patient was seen by counter server and recommended to start Clopidogrel to prevent future strokes, and does not recommend any intervention for PFO as it is too small and suggested A. fib and HTN are higher risk for CVA than PFO. will continue to monitor and start plavix and continue PT/OT (2) Elevated blood pressure reading: Code(s): R03.0 - Elevated blood-pressure reading, without diagnosis of hypertension Status: Acute Assessment and Plan: most likely secondary to stress as patient blood pressure is trending down will permissively monitor (3) Parkinsons disease: Code(s): G20 - Parkinson's disease Status: Acute Assessment and Plan: Will continue home regimen (4) Dementia: Code(s): F03.90 - Unspecified dementia without behavioral disturbance Status: Acute Assessment and Plan: Patient clinically stable no agitation (5) Glaucoma: Code(s): H40.9 - Unspecified glaucoma Status: Chronic Assessment and Plan: Will continue home regimen Additional Plan The patient presents today with reported worsening left-sided facial droop over the past week. Brain CT shows acute or subacute infarctions in the right frontal and parietal lobe deep white matter. She will be monitored on telemetry to rule out cardiac dysrhythmia. Blood pressures have been running high although she believes that is due to anxiety of being in the hospital as she has never had high blood pressure before. At this time we will monitor her blood pressures closely overnight and may very well start her on low-dose amlodipine this evening if her systolic pressures stay in the high 150s to 160s. Echocardiogram, carotid Doppler ultrasound, and brain MRI have been ordered as well for further evaluation. Continue neurologic checks q.4 hours. She is on a baby aspirin daily and that will be continued; may consider the addition of clopidogrel. Check fasting lipids in a.m. PT/OT/ST consulted. Subjective Date/time seen: 09/23/20 13:06 The patient presents today with reported worsening left-sided facial droop over the past week. Brain CT shows acute or subacute infarctions in the right frontal and parietal lobe deep white matter. She will be monitored on telemetry to rule out cardiac dysrhythmia. Blood pressures have be
[2020-09-23] MEDS: DONEPEZIL HCL 10 MG TABLET PO (22:51)
[2020-09-23] MEDS: rOPINIRole HCL 0.5 MG TABLET PO (22:51)
[2020-09-23] MEDS: MAGNESIUM OXIDE 400 MG TABLET 800 MG PO (22:51)
[2020-09-23] MEDS: CLOPIDOGREL BISULFATE 75 MG TABLET PO (22:51)
[2020-09-23] MEDS: LATANOPROST 0.005% OP SOLN 2.5 ML BTL 1 DROP EACH EYE (22:51)
[2020-09-23] MEDS: MAGNESIUM OXIDE 200 MG TABLET PO (22:51)
[2020-09-24] VITALS (9 sets, daily range): BP systolic 107–142; BP diastolic 53–69; PULSE 64–77; RESP 16–18; TEMP 36.2–37.3; O2SAT 91–94
[2020-09-24 06:27] LABS: Hematocrit 40.2 % (37.0-47.0); Hemoglobin 12.8 g/dL (12.0-15.0); Mean Corpuscular HGB Conc 31.8 g/dl (32-36); Mean Corpuscular Hemoglobin 27.5 pg (26-34); Mean Corpuscular Volume 86.5 fl (80-100); Mean Platelet Volume 9.1 fl (7.4-10.4); Platelet Count Result 214 k/mm3 (150-375); Red Blood Count 4.65 M/mm3 (4.2-5.4); Red Cell Distribution Width 13.2 % (11.5-14.5); White Blood Count 8.5 K/mm3 (4.5-10.0)
[2020-09-24 06:48] LABS: Anion Gap 6 mmol/L (8-16); Blood Urea Nitrogen 18 mg/dL (7-17); Calcium 9.4 mg/dL (8.4-10.2); Carbon Dioxide 27 mmol/L (22-30); Chloride 101 mmol/L (98-107); Estimated CRCL calculation 44 ml/min; Estimated Glomerular Filt Rate 53; Glucose 97 mg/dL (65-105); Potassium 3.8 mmol/L (3.4-5.0); Sodium 134 mmol/L (137-145)
[2020-09-24] MEDS: BRIMONIDINE TARTRATE 0.1% 5 ML OPHTH DROPS 1 DROP EACH EYE ×2 (09:09→21:44)
[2020-09-24] MEDS: DORZOLAMIDE/TIMOLOL OPHTH SOL 10 ML BOTTLE 1 DROP EACH EYE ×2 (09:09→21:46)
[2020-09-24] MEDS: DOCUSATE SODIUM 100 MG CAPSULE PO (09:10)
[2020-09-24] MEDS: CARBIDOPA/LEVODOPA 25/100 MG TABLET 1 TABLET PO ×3 (09:11→18:00)
[2020-09-24] MEDS: CITALOPRAM HYDROBROMIDE 20 MG TABLET PO (09:11)
[2020-09-24] MEDS: MULTIVITAMINS THERAPEUTIC TAB (*BKC) 1 TABLET PO (09:11)
--- NOTE | 2020-09-24 13:10 | P.DS_ITS ---
DS: Summary Time Spent with Patient Time attestation: Total time spent providing and/or coordinating discharge ser vices: DS: Data Data Completed and Pending Labs on day of discharge: Labs from last 24 hours 09/24/20 09/24/20 09/23/20 06:11 06:11 13:49 WBC 8.5 RBC 4.65 Hgb 12.8 Hct 40.2 MCV 86.5 MCH 27.5 MCHC 31.8 L RDW 13.2 Plt Count 214 MPV 9.1 Sodium 134 L Potassium 3.8 Chloride 101 Carbon Dioxide 27 Anion Gap 6 L BUN 18 H Creatinine 1.00 Estim Creat Clear Calc 44 Estimated GFR 53 L Glucose 97 Calcium 9.4 SARS-CoV-2 RNA (RT-PCR) Pending Discharge Plan Discharge Attending physician on discharge: Jem Fernandes Consulting providers: Adán Churchill ; Glenda Goel Discharging Clinician: Jem Fernandes Patient Disposition: NH Alf/Asst Living Activity: as tolerated Diet: heart healthy Discharge Instructions: Patient with stroke was placed on Plavix of 1 month, please stop it on October 24 and continue her ASA 81mg daily, patient to follow up with her primary care provider as sonn as possible . Patient Instructions: Antibiotic Form Stand Alone Forms: General Discharge Information Discharge Medications: New clopidogrel 75 mg Tablet 75 mg PO HS Qty: 30 RF: 0 Continued latanoprost 0.005 % drops 1 drp EACH EYE HS RF: 0 oxybutynin chloride 15 mg tablet extended release 24 hr 15 mg PO DAILY RF: 0 donepezil 10 mg tablet 10 mg PO HS RF: 0 citalopram 20 mg tablet 20 mg PO DAILY RF: 0 ropinirole 0.5 mg tablet 0.5 mg PO HS RF: 0 dorzolamide-timolol 22.3-6.8 mg/mL drops 1 drp EACH EYE BID RF: 0 carbidopa-levodopa 25-100 mg tablet 1 tablet PO TID RF: 0 Alphagan P 0.1 % drops 1 drp EACH EYE BID RF: 0 calcium citrate-vitamin D3 1 tablet PO DAILY RF: 0 Vitamin B-12 solution 1,000 mcg IM MONTHLY RF: 0 docusate sodium 100 mg PO DAILY RF: 0 loperamide 2 mg PO PRN PRN (Reason: Diarrhea) RF: 0 loratadine 10 mg PO DAILY PRN (Reason: Allergy Symptoms) RF: 0 dextromethorphan-guaifenesin 5-100 mg/5 mL Syrup 10 ml PO Q6H PRN (Reason: Cough) RF: 0 magnesium oxide 500 mg Tablet 1,000 mg PO HS RF: 0 multivitamin [Daily Multivitamin] Tablet 1 tablet PO DAILY RF: 0 hydrocortisone [Anusol-HC] 2.5 % Cream With Perineal Applicator 1 applic RECTAL TID PRN (Reason: Hemorrhoids) RF: 0 Held aspirin [Aspir-81] 81 mg Tablet,Delayed Release (Dr/Ec) 81 mg PO HS RF: 0 Hold Instructions: hold for 30 days while on plavix naproxen 250 mg Tablet 250 mg PO BID PRN (Reason: Pain) RF: 0 Hold Instructions: hold until seen by primary care provider Discontinued amoxicillin-pot clavulanate 875-125 mg tablet 1 tablet PO Q12H RF: 0 Date of admission: 09/21/20 10:30 Primary Care Provider: Fabian Watkins Admitting Provider: Melina Linda Attending physician on admission: Melina Linda Condition: Stable Quality VTE Prophylaxis VTE prophylaxis: mechanical ordered
[2020-09-24] MEDS: ATORVASTATIN 40 MG TABLET PO (18:00)
[2020-09-24 18:48] LABS: SARS-CoV-2 RNA PCR Negative
[2020-09-24] MEDS: LATANOPROST 0.005% OP SOLN 2.5 ML BTL 1 DROP EACH EYE (21:43)
[2020-09-24] MEDS: MAGNESIUM OXIDE 400 MG TABLET 800 MG PO (21:44)
[2020-09-24] MEDS: MAGNESIUM OXIDE 200 MG TABLET PO (21:45)
[2020-09-24] MEDS: DONEPEZIL HCL 10 MG TABLET PO (21:46)
[2020-09-24] MEDS: CLOPIDOGREL BISULFATE 75 MG TABLET PO (21:50)
[2020-09-24] MEDS: rOPINIRole HCL 0.5 MG TABLET PO (21:50)
[2020-09-25] VITALS: PULSE 66
[2020-09-25 04:00] VITALS: PULSE 75
[2020-09-25 06:00] VITALS: BP 141/60; PULSE 66; RESP 18; TEMP 36.4; O2SAT 95
[2020-09-25 06:18] LABS: Hematocrit 41.5 % (37.0-47.0); Hemoglobin 13.3 g/dL (12.0-15.0); Mean Corpuscular Hemoglobin 28.1 pg (26-34); Mean Corpuscular Volume 87.6 fl (80-100); Mean Platelet Volume 9.3 fl (7.4-10.4); Platelet Count Result 202 k/mm3 (150-375); Red Blood Count 4.74 M/mm3 (4.2-5.4); Red Cell Distribution Width 13.1 % (11.5-14.5); White Blood Count 7.3 K/mm3 (4.5-10.0)
[2020-09-25 06:36] LABS: Anion Gap 5 mmol/L (8-16); Blood Urea Nitrogen 19 mg/dL (7-17); Calcium 9.2 mg/dL (8.4-10.2); Carbon Dioxide 28 mmol/L (22-30); Chloride 103 mmol/L (98-107); Estimated CRCL calculation 44 ml/min; Estimated Glomerular Filt Rate 53; Glucose 108 mg/dL (65-105); Sodium 136 mmol/L (137-145)
[2020-09-25 08:00] VITALS: PULSE 70
[2020-09-25] MEDS: BRIMONIDINE TARTRATE 0.1% 5 ML OPHTH DROPS 1 DROP EACH EYE (08:46)
[2020-09-25] MEDS: DORZOLAMIDE/TIMOLOL OPHTH SOL 10 ML BOTTLE 1 DROP EACH EYE (08:46)
[2020-09-25] MEDS: CITALOPRAM HYDROBROMIDE 20 MG TABLET PO (08:47)
[2020-09-25] MEDS: CARBIDOPA/LEVODOPA 25/100 MG TABLET 1 TABLET PO ×2 (08:47→12:46)
[2020-09-25] MEDS: MULTIVITAMINS THERAPEUTIC TAB (*BKC) 1 TABLET PO (08:47)
[2020-09-25] MEDS: DOCUSATE SODIUM 100 MG CAPSULE PO (09:45)
[2020-09-25] MEDS: ATORVASTATIN 40 MG TABLET PO (09:45)
--- NOTE | 2020-09-25 09:51 | WPDNEUROPN ---
Progress Note: A&P Additional Plan stable being discharged today Review of Systems Review of Systems: All systems reviewed & are unremarkable except as noted in HPI and below Exam Const: General: cooperative, comfortable and no acute distress Orientation/consciousness: oriented to person and oriented to place Limitations: physical limitations HENMT: Ears: hearing grossly normal bilaterally General nose exam: Normal external nose present Face and sinus: normal facial exam Eyes: Visual [place]: abnormal by confrontation Neck: Neck: full ROM Resp: Effort & Inspection: normal respiratory effort Cardio: Rate: regular rate Rhythm: regular rhythm GI: Auscultation: normal bowel sounds Neuro: General: oriented to person and oriented to place Cranial nerves: Yes Nystagmus not present, Yes Normal facial strength present, Yes Midline tongue present, Yes Normal hearing present and Yes Ability to bilaterally rotate head present Cognition (Neuro): normal cognition Speech: normal speech Gait exam (Neuro): Unable to assess gait Extrem: General: full ROM Psych: Speech and movement: Clear speech present Affect: Sad affect present Attitude: cooperative Thought process: Impoverished thought process present Thought content: Yes Depressive thoughts present Insight: Fair insight present (Psych) Judgement: Fair judgement present (Psych) Objective Data Vital Signs Vital Signs: Vital Signs - 24 hr 09/24/20 12:00 09/24/20 14:00 09/24/20 16:00 Temperature 37.3 C Pulse Rate 64 71 69 Respiratory Rate 16 Blood Pressure 107/53 L Pulse Oximetry 93 09/24/20 20:00 09/24/20 22:00 09/25/20 00:00 Temperature 36.2 C L Pulse Rate 66 77 66 Respiratory Rate 18 Blood Pressure 142/69 H Pulse Oximetry 94 09/25/20 04:00 09/25/20 06:00 Temperature 36.4 C Pulse Rate 75 66 Respiratory Rate 18 Blood Pressure 141/60 H Pulse Oximetry 95 Intake/Output Intake/Output: Intake & Output 09/22/20 09/23/20 09/24/20 09/25/20 23:59 23:59 23:59 23:59 Intake Total 50 985 930 200 Output Total 3 Balance 47 985 930 200 Meds/Results Medications: Active Medications Generic Name Dose Route Start Last Admin Trade Name Freq PRN Reason Stop Dose Admin Atorvastatin Calcium 40 mg 09/24/20 15:35 09/25/20 09:45 Atorvastatin 40 Mg Tablet PO 40 mg DAILY JONO Administration Brimonidine Tartrate 1 drop 09/21/20 21:30 09/25/20 08:46 Brimonidine Tartrate 0.1% 5 Ml Ophth Drops EACH EYE 1 drop Q12HR JONO Administration Calcium Citrate 1 tablet 09/22/20 09:00 09/25/20 08:47 Calcium Citrate 315 Mg/Vitamin D 250 Units Tab PO 1 tablet QAM JONO Administration Carbidopa/Levodopa 1 tablet 09/21/20 21:30 09/25/20 08:47 Carbidopa/Levodopa 25/100 Mg Tablet PO 1 tablet TIDWM JONO Administration Citalopram Hydrobromide 20 mg 09/22/20 09:00 09/25/20 08:47 Citalopram Hydrobromide 20 Mg Tablet PO 20 mg DAILY JONO Administration Clopidogrel Bisulfate 75 mg 09/23/20 21:00 09/24/20 21:50 Clopidogrel Bisulfate 75 Mg Tablet PO 75 mg HS JONO Administration Cyanocobalamin 1,000 mcg 10/11/20 09:00 Cyanocobalamin Inj 1,000 Mcg/Ml Vial IM 11/20/20 09:01 MONTHLY JONO Docusate Sodium 100 mg 09/22/20 09:00 09/25/20 09:45 Docusate Sodium 100 Mg Capsule PO 10/22/20 09:01 100 mg DAILY JONO Administration Donepezil HCl 10 mg 09/21/20 21:30 09/24/20 21:46 Donepezil Hcl 10 Mg Tablet PO 10 mg HS JONO Administration Dorzolamide/Timolol 1 drop 09/21/20 21:25 09/25/20 08:46 Dorzolamide/Timolol Ophth Kiara 10 Ml Bottle EACH EYE 1 drop Q12HR JONO Administration Guaifenesin/Dextromethorphan 10 ml 09/21/20 21:24 Guaifenesin/Dextromethorphan 10 Ml Udc PO QID PRN Cough Hydrocortisone 1 applic 09/21/20 21:08 Hydrocortisone (Proctozone-Hc) 2.5% Cream 30 Gm Tube RECTAL TID PRN Hemorrhoids Latanoprost 1 drop 09/21/20 21:30 05
--- NOTE | 2020-09-25 12:51 | PM.DS ---
DS: Admitting Diagnosis Admitting Diagnosis Admitting Diagnosis: Chief Complaint: ?Left facial droop.? DS: Discharge Diagnosis Discharge Diagnosis (1) Cerebrovascular accident: Code(s): I63.9 - Cerebral infarction, unspecified Status: Acute Assessment and Plan: 09/23/20 13:06 The patient presents today with reported worsening left-sided facial droop over the past week. Brain CT shows acute or subacute infarctions in the right frontal and parietal lobe deep white matter. She will be monitored on telemetry to rule out cardiac dysrhythmia. Blood pressures have been running high although she believes that is due to anxiety of being in the hospital as she has never had high blood pressure before. At this time we will monitor her blood pressures closely overnight and may very well start her on low-dose amlodipine this evening if her systolic pressures stay in the high 150s to 160s. Echocardiogram, carotid Doppler ultrasound, and brain MRI have been ordered as well for further evaluation. Continue neurologic checks q.4 hours. She is on a baby aspirin daily and that will be continued; may consider the addition of clopidogrel. Check fasting lipids in a.m. PT/OT/ST consulted. 09/22 Patient 80-year-old female with recurrent CV presented with right hemispheric stroke, cardiac echo showed few bubbles crossing the septum through the patent foramen ovale to the left side, patient seen by Neurology recommending cardiology consult is patient may recall systematic anticoagulation and may benefit from cardia surgical evaluation, patient is clinically stable will continue to monitor. Will have a PT OT evaluate the patient patient will benefit from acute rehab 09/23 Patient remains clinically stable and still confused, patient was seen by river rafting guide and recommended to start Clopidogrel to prevent future strokes, and does not recommend any intervention for PFO as it is too small and suggested A. fib and HTN are higher risk for CVA than PFO. will continue to monitor and start plavix and continue PT/OT (2) Elevated blood pressure reading: Code(s): R03.0 - Elevated blood-pressure reading, without diagnosis of hypertension Status: Acute Assessment and Plan: most likely secondary to stress as patient blood pressure is trending down will permissively monitor (3) Parkinsons disease: Code(s): G20 - Parkinson's disease Status: Acute Assessment and Plan: Will continue home regimen (4) Dementia: Code(s): F03.90 - Unspecified dementia without behavioral disturbance Status: Acute Assessment and Plan: Patient clinically stable no agitation (5) Glaucoma: Code(s): H40.9 - Unspecified glaucoma Status: Chronic Assessment and Plan: Will continue home regimen DS: Summary Hospital Course Reason for hospitalization: Chief Complaint: ?Left facial droop.? Narrative: This is an 80-year-old female with dementia and Parkinson's who presented to the emergency department earlier today via EMS from a local retirement for evaluation of ?worsened left facial droop.? She is alert and oriented x3 however is confused regarding situation and she seems to suffer from short-term memory loss and as such some of the following history is supplemented via a review of her electronic medical records as well as discussions with her son Tay. She was seen in the ER on 09/13/2020 with headache and blurred vision and at that time brain CT was unremarkable for acute process. The patient felt better within a few hours and she was discharged. Since that time she reportedly has been more confused with a more pronounced left facial droop and she was brought back in today. Brain CT today showed worsening areas of low attenuation in the right frontal and parietal lobes consistent with acute versus subacute infarcts. Currently she has no complaints aside from a mild, generalized headache. She denies vertigo, auditory a
== END 2020-09-25 14:10 | DRG 66 ==
LOC: ANHED 08:35 → ANH3MEDSUR 14:01
PROVIDERS: Physician Assistant; Admitting Provider Family Medicine; Emergency Provider Emergency Medicine; PCP Family Medicine; Visit Provider Family Medicine
DX: I63.9 Cerebral infarction, unspecified (principal); R29.810 Facial weakness; Z20.822 Contact with and (suspected) exposure to COVID-19; G20 Parkinson's disease; F02.80 Dementia in other diseases classified elsewhere, unspecified severity, without behavioral disturbance, psychotic disturbance, mood disturbance, and anxiety; R03.0 Elevated blood-pressure reading, without diagnosis of hypertension; E78.5 Hyperlipidemia, unspecified; F41.8 Other specified anxiety disorders; M81.0 Age-related osteoporosis without current pathological fracture; H40.9 Unspecified glaucoma; Z79.82 Long term (current) use of aspirin; Z79.899 Other long term (current) drug therapy
CPT/HCPCS: 36415; 51701; 70450; 70553; 80048; 80053; 80061; 81003; 83735; 84443; 85025; 85027; 92610; 93005; 93306; 93880; 96360; 96375; 97110; 97161; 97166; 97530; 99285; A9270; A9577; C9803; J7040; U0003; U0005

== ENCOUNTER 2021-12-24 18:59 | Inpatient (IN) | payer OTHER, SELFPAY ==
[2021-12-24] VITALS (8 sets, daily range): BP systolic 91–128; BP diastolic 38–58; PULSE 95–112; RESP 14–37; TEMP 36.8–38; O2SAT 96–97
--- NOTE | ~2021-12-24 | CT_ITS ---
EXAMINATION: CT brain wo con DATE: 12/24/2021 19:05 INDICATION: Left hemiparesis. Confusion. TECHNIQUE: Computed tomography (CT) of the head was performed without intravenous contrast. The mA wa s adjusted according to patient size. Iterative reconstruction technique was employed. The dose-lengt h product was 605.33 mGy-cm. COMPARISON: Head CT 09/21/2020 FINDINGS: There is an old infarct in the right basal ganglia. There are scattered areas of low attenu ation in the cerebral white matter. There is no intracranial hemorrhage, acute infarction, or abnorma l intracranial mass lesion. The ventricles are normal in size. The orbits are normal. There is mild m ucosal thickening in the paranasal sinuses. The mastoid air cells are normal. IMPRESSION: 1. Old infarct in the right basal ganglia. 2. Stable moderate nonspecific cerebral white matter disease, which likely represents chronic small v essel ischemic disease. 3. I discussed this case with Dr. Bowles. Reviewed, dictated and finalized at location A. IMPRESSION: 1. Old infarct in the right basal ganglia. 2. Stable moderate nonspecific cerebral white matter disease, which likely repr esents chronic small vessel ischemic disease. 3. I discussed this case with Dr. Bowles.
--- NOTE | ~2021-12-24 | XR_ITS ---
EXAMINATION: XR chest 1V portable DATE: 12/24/2021 19:39 INDICATION: Stroke. TECHNIQUE: A single frontal view of the chest was obtained. COMPARISON: Chest single view 12/18/2015 FINDINGS: There is mild atelectasis at left lung base. No pleural effusion or pneumothorax. The heart size is normal. IMPRESSION: 1. Mild atelectasis at left lung base. Reviewed, dictated and finalized at location A.
--- NOTE | ~2021-12-24 | CT_ITS ---
EXAMINATION: CT abdomen pelvis w con DATE: 12/24/2021 20:43 INDICATION: Transaminitis. TECHNIQUE: Computed tomography (CT) of the abdomen and pelvis was performed with 100 mL Omnipaque 350 intravenous contrast. Automated exposure control and iterative reconstruction technique were employe d. The dose-length product was 904.55 mGy-cm. COMPARISON: None. FINDINGS: The visualized portions of the lung bases demonstrate mild atelectasis and mild chronic int erstitial lung disease. No pleural effusion. The heart size is normal. No pericardial effusion. There is a moderate-sized sliding hiatal hernia. There is moderate intrahepatic biliary duct dilatation. T he gallbladder is also absent. The common hepatic duct is dilated to 16 mm. There are 2 stones in the common duct measuring up to 8 mm. The spleen, pancreas, adrenal glands, and kidneys are normal. Stoo l distends the rectum. There is a left inguinal hernia containing fat. There is diverticulosis of the colon without evidence of diverticulitis. The appendix is normal. There are no pathologically enlarg ed lymph nodes. There is no free intraperitoneal fluid. There is internal fixation of right femur. Th ere is moderate thoracic spondylosis and severe lumbar spondylosis. IMPRESSION: 1. Choledocholithiasis with moderate intrahepatic and extrahepatic biliary duct dilatation. 2. Stool distends the rectum. 3. Left inguinal hernia containing fat. 4. Moderate-sized sliding hiatal hernia. Reviewed, dictated and finalized at location A.
--- NOTE | ~2021-12-24 | XR_ITS ---
EXAMINATION: XR ERCP DATE: 12/25/2021 15:43 INDICATION: Choledocholithiasis. TECHNIQUE: 2 spot fluoroscopic images of the right upper quadrant were obtained during endoscopic ret rograde cholangiopancreatography (ERCP). Fluoroscopy exposure time was 111 seconds. COMPARISON: CT abdomen and pelvis 12/24/2021 FINDINGS: The endoscope is in the second portion of the duodenum. There are stones in the common duct , which is dilated. IMPRESSION: 1. Choledocholithiasis. Please refer to the ERCP procedure note for additional details. Reviewed, dictated and finalized at location A.
--- NOTE | 2021-12-24 19:20 | ECG_ITS ---
Measurements Intervals [place] Rate: 109 P: 55 ND: 198 QRS: 6 QRSD: 84 T: 71 QT: 303 QTc: 409 Interpretive Statements SINUS TACHYCARDIA NONSPECIFIC ST & T-WAVE ABNORMALITY ABNORMAL ECG Electronically Signed On 12-25-2021 10:43:48 CDT by Kevan Tracey M.D.
[2021-12-24 19:22] LABS: Basophils Percent Auto 0.3 % (0.2-1.2); Eosinophils Percent Auto 0.2 % (0-4.4); Hematocrit 42.4 % (37.0-47.0); Hemoglobin 13.5 g/dL (12.0-15.0); Immature Granulocyte Absolute 0.03 K/mm3 (0.00-0.031); Immature Granulocyte Percent A 0.5 % (0-0.5); Immature Platelet Fraction Pct 1.8 % (0.9-11.2); Lymphocytes Absolute Auto 0.48 K/mm3 (0.9-3.2); Lymphocytes Percent Auto 8.4 % (18.3-44.2); Mean Corpuscular HGB Conc 31.8 g/dl (32-36); Mean Corpuscular Hemoglobin 28.7 pg (26-34); Mean Platelet Volume 9.7 fl (7.4-10.4); Monocytes Absolute Auto 0.4 K/mm3 (0.1-0.6); Monocytes Percent Auto 6.6 % (2.6-8.5); Neutrophils Absolute Auto 4.8 K/mm3 (1.3-6.7); Platelet Count Result 143 k/mm3 (150-375); Red Blood Count 4.71 M/mm3 (4.2-5.4); Red Cell Distribution Width 13.8 % (11.5-14.5); White Blood Count 5.7 K/mm3 (4.5-10.0)
--- NOTE | 2021-12-24 19:23 | PC.NURSE ---
Report given to KEKE Urias at this time.
[2021-12-24 19:27] LABS: Glucose Point of Care 136 mg/dl (65-105)
[2021-12-24 19:38] LABS: INR 1.1; Prothrombin Time 13.8 Seconds (11.1-14.7)
[2021-12-24 19:39] LABS: Partial Thromboplastin Time 25.4 SECONDS (22.3-36.8)
[2021-12-24 19:40] LABS: Alanine Aminotransferase 418 U/L (6-35); Albumin Level 3.8 g/dL (3.5-5.1); Alkaline Phosphatase 374 U/L (38-126); Anion Gap 11 mmol/L (8-16); Bilirubin,Total 1.7 mg/dL (0.2-1.3); Blood Urea Nitrogen 23 mg/dL (7-17); Calcium 9.1 mg/dL (8.4-10.2); Carbon Dioxide 23 mmol/L (22-30); Chloride 102 mmol/L (98-107); Estimated Glomerular Filt Rate > 60; Glucose 145 mg/dL (65-110); Potassium 3.3 mmol/L (3.4-5.0); Sodium 136 mmol/L (137-145)
[2021-12-24 19:43] LABS: Troponin I 0.013 ng/mL (0.000-0.034)
[2021-12-24 19:56] LABS: Aspartate Amino Transferase 839 U/L (14-36)
[2021-12-24] MEDS: SODIUM CHLORIDE 0.9% IV 1,000 ML 999 ML IV CONT (19:58)
[2021-12-24 20:05] LABS: Appearance Urine Slightly Cloudy (Clear); Bilirubin Urine 2+ (Negative); Blood Urine Trace-lysed (Negative); Color Urine Yellow (Yellow); Glucose Urine UA Negative (Negative); Ketones Urine Negative (Negative); Leukocyte Esterase Ur Trace LEU/UL (Negative); Nitrate Urine Positive (Negative); Protein Urine Negative (Negative); Specific Grav Ur 1.025 (1.001-1.035); pH Urine 5.5 (5.0-9.0)
[2021-12-24 20:08] LABS: Bacteria Urine Trace /hpf; Mucus Urine Rare /lpf; Squamous Epithelial Cell Urine Moderate /hpf (Few)
[2021-12-24 20:10] LABS: Add Urine Microscopic? YES
[2021-12-24 20:36] LABS: SARS-CoV-2 RNA PCR Negative
--- NOTE | 2021-12-24 21:18 | ED.NEUROSD ---
HPI - Neuro Symptoms/Deficit General Chief Complaint: Suspected CVA Stated Complaint: STROKE SYMPTOMS Time Seen by Provider: 12/24/21 19:01 History of Present Illness HPI Narrative: Patient is an 81-year-old female who presents ER with concerns for possible CVA. Last known normal was at 1300. Apparently patient is just not responding like she typically does. She is at baseline oriented x1-2. Currently oriented x1. She moves all extremities and answers questions to my voice. No facial droop. Patient is not reporting any pain. Related Data Home Medications Medication Instructions Recorded Confirmed carbidopa 25 mg-levodopa 100 mg 1 tablet PO TID 09/13/20 12/24/21 tablet dorzolamide 22.3 mg-timolol 6.8 1 drp EACH EYE BID glaucoma 09/13/20 12/24/21 mg/mL eye drops latanoprost 0.005 % eye drops 1 drp EACH EYE HS glaucoma 09/13/20 12/24/21 aspirin 81 mg tablet,delayed 81 mg PO HS 09/21/20 12/24/21 release brimonidine 0.1 % eye drops 1 drp EACH EYE BID glaucoma 09/21/20 12/24/21 (Alphagan P) multivitamin 1 tablet PO DAILY 09/21/20 12/24/21 Allergies Allergy/AdvReac Type Severity Reaction Status Date / Time amoxicillin [From Augmentin] Allergy Unknown Verified 12/24/21 19:24 clavulanic acid Allergy Unknown Verified 12/24/21 19:24 [From Augmentin] PMFSH Past Medical History Medical History Dementia Depression with anxiety Glaucoma Hyperlipidemia Osteoporosis Parkinsons disease Surgical History Surgical History History of cholecystectomy History of tonsillectomy and adenoidectomy Family History Family History Father Tuberculosis Hypertension Lung cancer Mother Paranoid schizophrenia Mother No problems noted. Social History Social History Social History: The patient is a resident at [facility]. She has one son, Tay Clark, who is her healthcare power of criminal defense attorney. Retired from office work. Lifelong nonsmoker. No alcohol or illicit substance use. Code status: Do not resuscitate. Smoking status: Unknown if ever smoked Alcohol intake: unknown Substance use: unknown Spiritual care concerns: No Exam Narrative: GENERAL: Chronically ill-appearing, well-nourished, and in no acute distress. HEAD: Normocephalic, atraumatic. EYES: PERRL and EOMI. ENT: Mucous membranes moist. CHEST: Clear to auscultation. No respiratory distress. HEART: Tachycardic, regular. Normal peripheral pulses. ABDOMEN: Soft, nontender, nondistended. EXTREMITIES: Normal range of motion. No edema. SKIN: Warm, dry, no rash. NEURO: No focal deficits. Alert and oriented x1. PSYCH: Normal mood and affect. Course Course Emergency Course: Patient resting comfortably. No abdominal pain despite having normal LFTs. Lipase will be added on. Discussed case with GI and they would like patient to receive some antibiotics prophylactically and will see patient in morning. Patient will be kept NPO. Will admit to hospitalist service. Vital Signs Vital signs: Vital Signs Pulse Rate 110 H 12/24/21 19:06 Respiratory Rate 22 H 12/24/21 19:06 Blood Pressure 124/55 L 12/24/21 19:06 Pulse Oximetry 96 12/24/21 19:06 Oxygen Delivery Room Air 12/24/21 19:06 Temperature 98.0 F 12/25/21 04:00 Pulse Rate 76 12/25/21 04:00 Respiratory Rate 20 12/25/21 04:00 Blood Pressure 117/60 12/25/21 04:00 Pulse Oximetry 99 12/25/21 04:00 Oxygen Delivery Room Air 12/25/21 04:00 MDM - Neuro Symptoms/Deficit Lab Data Result diagrams: 12/24/21 19:14 12/25/21 03:02 Labs: Lab Results 12/24/21 12/24/21 12/24/21 Range/Units 19:08 19:14 19:14 WBC 5.7 (4.5-10.0) K/mm3 RBC 4.71 (4.2-5.4) M/mm3 Hgb 13.5 (12.0-15.0) g/dL
--- NOTE | 2021-12-24 21:25 | PC.NURSE ---
Talked to Opa in lab at 21:25 to add on Lip
--- NOTE | 2021-12-24 21:46 | PC.NURSE ---
Talked to Justin in lab at 21:46 to check on adding lip from previous call at 21:25, he said he added it now (21:46)
[2021-12-24] MEDS: metroNIDAZOLE 500 MG/ISO 100ML 500 MG/100 ML BAG 100 MG IVPB (21:56)
[2021-12-24 21:57] LABS: Lipase 100 U/L (23-300)
[2021-12-24] MEDS: LACTATED RINGERS 1,000 ML 125 ML IV CONT (22:20)
[2021-12-25] VITALS (23 sets, daily range): BP systolic 91–135; BP diastolic 44–86; PULSE 72–90; RESP 12–22; TEMP 36.2–37.1; O2SAT 97–100; BMI 24.9
[2021-12-25] MEDS: LACTATED RINGERS 1,000 ML 2000 ML IV CONT (00:51)
--- NOTE | 2021-12-25 01:34 | PM.IMHP ---
H&P: HPI History of Present Illness Date/Time: 12/25/21 01:34 Chief Complaint: Encephalopathy Narrative: 81-year-old female past medical history of depression/ anxiety, dementia, history of stroke 09/2020 right hemispheric ( small PFO noted no closure recommended, treated with Plavix for 1 month ), Parkinson's, HLD. Presented with encephalopathy, last known normal was around 1300. Patient is currently encephalopathic, unable to provide history. In ED, patient found to be febrile up to 100.4, slightly tachypneic, blood pressure 120s/50s. White count normal at 5.7. other labs remarkable for potassium 3.3. Total bili 1.7, AST / ALT 839/418, alk-phos 374. INR normal. CT abdomen pelvis demonstrating moderate intrahepatic biliary duct dilation with common hepatic duct dilated to 16 mm and 2 stones in the common duct measuring up to 8 mm. Large stool burden noted in rectum.UA positive for nitrates and mild leukocyte esterase , however moderate squames noted. No blood cultures obtained, patient given dose of Rocephin and Flagyl. Upon evaluation on floor, patient appears more obtunded and blood pressure now 90s/50s. Review of Systems Review of Systems: Unable to obtain due to encephalopathy PMFSH Past Medical History Medical History Dementia Depression with anxiety Glaucoma Hyperlipidemia Osteoporosis Parkinsons disease Surgical History Surgical History History of cholecystectomy History of tonsillectomy and adenoidectomy Family History Family History Father Tuberculosis Hypertension Lung cancer Mother Paranoid schizophrenia Mother No problems noted. Social History Social History Social History: The patient is a resident at [facility]. She has one son, Tay Clark, who is her healthcare power of senior trial attorney. Retired from office work. Lifelong nonsmoker. No alcohol or illicit substance use. Code status: Do not resuscitate. Smoking status: Unknown if ever smoked Alcohol intake: unknown Substance use: unknown Spiritual care concerns: No Meds Home Medications and Allergies Home Medications Medication Instructions Recorded Confirmed Type carbidopa 25 mg-levodopa 100 mg 1 tablet PO TID 09/13/20 12/24/21 History tablet dorzolamide 22.3 mg-timolol 6.8 1 drp EACH EYE BID glaucoma 09/13/20 12/24/21 History mg/mL eye drops latanoprost 0.005 % eye drops 1 drp EACH EYE HS glaucoma 09/13/20 12/24/21 History aspirin 81 mg tablet,delayed 81 mg PO HS 09/21/20 12/24/21 History release brimonidine 0.1 % eye drops 1 drp EACH EYE BID glaucoma 09/21/20 12/24/21 History (Alphagan P) multivitamin 1 tablet PO DAILY 09/21/20 12/24/21 History Allergies Allergy/AdvReac Type Severity Reaction Status Date / Time amoxicillin [From Augmentin] Allergy Unknown Verified 12/24/21 19:24 clavulanic acid Allergy Unknown Verified 12/24/21 19:24 [From Augmentin] Vital Signs Vital Signs - 24 hr 12/24/21 19:06 12/24/21 19:17 12/24/21 20:13 Temperature Pulse Rate 110 H 112 H 110 H Respiratory Rate 22 H 22 H 37 H Blood Pressure 124/55 L 128/58 L 117/46 L Pulse Oximetry 96 96 96 Oxygen Delivery Room Air 12/24/21 20:00 12/24/21 20:44 12/24/21 21:32 Temperature Pulse Rate 109 H 109 H 105 H Respiratory Rate 20 20 18 Blood Pressure 117/46 L 103/52 L 101/38 L Pulse Oximetry 96 96 96 Oxygen Delivery 12/24/21 22:19 12/24/21 22:38 12/25/21 00:00 Temperature 100.4 F H 98.2 F 98.2 F Pulse Rate 95 76 Respiratory Rate 14 12 Blood Pressure 91/42 L 91/48 L Pulse Oximetry 97 100 Oxygen Delivery Exam Const: Other: obtunded Eyes: Pupils: Equal, round and reactive pupils present EOM: EOMs intact bilaterally Resp: Effort & Inspection:
[2021-12-25 02:02] LABS: Alveolar/Arterial O2 Gradient 19.1 mmHg; Base Excess ABG -2.7 mEq/l (+/-2.0); Fractional Inspired Oxygen 21 %; HCO3 ABG 21.2 mEq/l (22.0-26.0); Oxyhemoglobin 96.1 % THb (90.0-100.0); PCO2 ABG 34.2 mmHg (35.0-45.0); PO2 ABG 89.7 mmHg (80.0-100.0); PO2 FiO2 Ratio Arterial Blood 4.27 %; Total Hemoglobin 12.5 g/dL (12.0-18.0); pH ABG 7.411 (7.350-7.450)
[2021-12-25 02:04] LABS: Device ROOM AIR; Modified Allen's Test Unable to perform; Site Drawn RIGHT RADIAL
[2021-12-25 02:09] LABS: Lactic Acid Reflex 2.8 mmol/L (0.7-2.0)
--- NOTE | 2021-12-25 02:09 | PC.NURSE ---
This patient, Barbara Clark, was received from [room 346] on 12/25/21 at 0209. Patient/family oriented to unit policies and routines
[2021-12-25] MEDS: POTASSIUM CHLORIDE INJ 40 MEQ in SODIUM CHLORIDE 0.9% IV 500 ML 125 MEQ IVPB (03:32)
[2021-12-25 03:37] LABS: Alanine Aminotransferase 388 U/L (6-35); Albumin Level 2.8 g/dL (3.5-5.1); Alkaline Phosphatase 232 U/L (38-126); Anion Gap 9 mmol/L (8-16); Aspartate Amino Transferase 435 U/L (14-36); Bilirubin,Total 2.5 mg/dL (0.2-1.3); Blood Urea Nitrogen 19 mg/dL (7-17); Calcium 8.4 mg/dL (8.4-10.2); Carbon Dioxide 20 mmol/L (22-30); Chloride 105 mmol/L (98-107); Estimated CRCL calculation 47 ml/min; Estimated Glomerular Filt Rate > 60; Glucose 121 mg/dL (65-110); Potassium 4.3 mmol/L (3.4-5.0); Sodium 134 mmol/L (137-145)
--- NOTE | 2021-12-25 04:10 | PC.NURSE ---
Lab louie pt's blood cultures and BMP. Pt then received scheduled antibiotic. Potassium then started following the infusion of the antibiotic. BMP resulted soon after. Potassium 4.3. Notified Dr. Godoy that lab was drawn before potassium was started. Order to stop potassium infusion.
[2021-12-25 04:56] LABS: Reflex Lactic Acid Yes or No Add Lactic
[2021-12-25 05:21] LABS: Basophils Absolute Auto 0.1 K/mm3 (0.0-0.1); Basophils Percent Auto 0.7 % (0.2-1.2); Eosinophils Percent Auto 0.3 % (0-4.4); Hemoglobin 13.3 g/dL (12.0-15.0); Immature Granulocyte Absolute 0.03 K/mm3 (0.00-0.031); Immature Granulocyte Percent A 0.2 % (0-0.5); Immature Platelet Fraction Pct 1.9 % (0.9-11.2); Lymphocytes Absolute Auto 1.73 K/mm3 (0.9-3.2); Lymphocytes Percent Auto 14.1 % (18.3-44.2); Mean Corpuscular HGB Conc 29.6 g/dl (32-36); Mean Platelet Volume 9.6 fl (7.4-10.4); Monocytes Absolute Auto 0.6 K/mm3 (0.1-0.6); Monocytes Percent Auto 4.6 % (2.6-8.5); Neutrophils Absolute Auto 9.9 K/mm3 (1.3-6.7); Neutrophils Percent Auto 80.1 % (45.5-73.1); Platelet Count Result 140 k/mm3 (150-375); Red Blood Count 4.59 M/mm3 (4.2-5.4); Red Cell Distribution Width 14.1 % (11.5-14.5); White Blood Count 12.3 K/mm3 (4.5-10.0)
[2021-12-25 05:27] LABS: Lactic Acid 3.7 mmol/L (0.7-2.0)
[2021-12-25] MEDS: metroNIDAZOLE 500 MG/ISO 100ML 500 MG/100 ML BAG 100 MG IVPB ×2 (05:49→21:01)
[2021-12-25] MEDS: BISACODYL 10 MG SUPPOSITORY RECTAL (05:54)
[2021-12-25 06:30] LABS: Appearance Urine Clear (Clear); Bilirubin Urine 1+ (Negative); Color Urine Yellow (Yellow); Glucose Urine UA Negative (Negative); Ketones Urine Negative (Negative); Leukocyte Esterase Ur Trace LEU/UL (NEGATIVE); Nitrate Urine Positive (Negative); Protein Urine Negative (Negative); Specific Grav Ur 1.015 (1.001-1.035); Urobilinogen Urine 0.2 mg/dL (<2.0); pH Urine 6.5 (5.0-9.0)
[2021-12-25 07:00] LABS: Add Urine Microscopic? YES; Blood Urine Trace-Intact (Negative)
[2021-12-25 07:15] LABS: Bacteria Urine 2+ /hpf; Squamous Epithelial Cell Urine Rare /hpf (Few)
[2021-12-25] MEDS: LACTATED RINGERS 1,000 ML 110 ML IV CONT ×2 (09:40→20:09)
[2021-12-25] MEDS: PANTOPRAZOLE SODIUM IV 40 MG VIAL IV PUSH (09:41)
[2021-12-25] MEDS: LACTATED RINGERS 1,000 ML 150 ML IV CONT (13:07)
--- NOTE | 2021-12-25 13:17 | WPDANESEPPF ---
Anes - Initial Pre Proc Eval Procedure: Operation Date: 12/25/21 14:30 Proposed Procedures p Endoscopic Retro Cholangiopancreatogram - Khoa Cid MD Date/Time: 12/25/21 13:17 Surgeon: Damion Godoy DO Pre Op Diagnosis: choledocholithiasis Patient Data Age: 81 Gender: F Height: 1.7 m Weight: 72.1 kg Last Vital Signs Temp 97.2 F L 12/25/21 13:04 Pulse 82 12/25/21 13:04 Resp 18 12/25/21 13:04 BP 101/73 12/25/21 13:04 Pulse Ox 98 12/25/21 13:04 O2 Del Method Room Air 12/25/21 13:04 Allergies Allergy/AdvReac Type Severity Reaction Status Date / Time amoxicillin [From Augmentin] Allergy Unknown Verified 12/24/21 19:24 clavulanic acid Allergy Unknown Verified 12/24/21 19:24 [From Augmentin] Home Medications Medication Instructions Recorded Confirmed Type carbidopa 25 mg-levodopa 100 mg 1 tablet PO TID 09/13/20 12/24/21 History tablet dorzolamide 22.3 mg-timolol 6.8 1 drp EACH EYE BID glaucoma 09/13/20 12/24/21 History mg/mL eye drops latanoprost 0.005 % eye drops 1 drp EACH EYE HS glaucoma 09/13/20 12/24/21 History aspirin 81 mg tablet,delayed 81 mg PO HS 09/21/20 12/24/21 History release brimonidine 0.1 % eye drops 1 drp EACH EYE BID glaucoma 09/21/20 12/24/21 History (Alphagan P) multivitamin 1 tablet PO DAILY 09/21/20 12/24/21 History Laboratory Tests 12/24/21 12/24/21 12/24/21 19:08 19:14 19:14 WBC 5.7 K/mm3 K/mm3 (4.5-10.0) RBC 4.71 M/mm3 M/mm3 (4.2-5.4) Hgb 13.5 g/dL g/dL (12.0-15.0) Hct 42.4 % % (37.0-47.0) MCV 90.0 fl fl (80-100) MCH 28.7 pg pg (26-34) MCHC 31.8 g/dl L g/dl (32-36) RDW 13.8 % % (11.5-14.5) Plt Count 143 k/mm3 L k/mm3 (150-375) MPV 9.7 fl fl (7.4-10.4) Immature Gran % (Auto) 0.5 % % (0-0.5) Neut % (Auto) 84.0 % H % (45.5-73.1) Lymph % (Auto) 8.4 % L % (18.3-44.2) [place] % (Auto) 6.6 % % (2.6-8.5) Eos % (Auto) 0.2 % % (0-4.4) Baso % (Auto) 0.3 % % (0.2-1.2) Lymph # (Auto) 0.48 K/mm3 L K/mm3 (0.9-3.2) [place] # (Auto) 0.4 K/mm3 K/mm3 (0.1-0.6) Eos # (Auto) 0.0 K/mm3 K/mm3 (0-0.3) Baso # (Auto) 0.0 K/mm3 K/mm3 (0.0-0.1) Abs Immat Gran (auto) 0.03 K/mm3 K/mm3 (0.00-0.031) Absolute Neuts (auto) 4.8 K/mm3 K/mm3 (1.3-6.7) Absolute Nucleated RBC 0.0 K/mm3 K/mm3 (0.0-0.012) Nucleated RBC % 0.0 % % (0.0-0.2) % Immature Plt Fraction 1.8 % % (0.9-11.2) PT 13.8 Seconds Seconds (11.1-14.7) INR 1.1 APTT 25.4 SECONDS SECONDS (22.3-36.8) Puncture Site ABG pH ABG pCO2 ABG pO2 ABG PO2/FiO2 Ratio ABG HCO3 ABG O2 Saturation ABG O2 Content ABG Base Excess A-a Gradient Oxyhemoglobin Total Hemoglobin O2 Delivery Device O2 Liters/Min FiO2 Sodium Potassium Chloride Carbon Dioxide Anion Gap BUN Creatinine Estim Creat Clear Calc Estimated GFR Glucose POC Capillary Glucose 136 mg/dl H mg/dl (65-105) Lactic Acid Calcium Total Bilirubin AST ALT Alkaline Phosphatase Troponin I Total Protein Albumin Lipase Urine Color Urine Appearance Urine pH Ur Specific [place] Urine Protein Urine Glucose (UA) Urine Ketones Ur Blood (Man) Urine Nitrate Urine Bilirubin Urine U
--- NOTE | 2021-12-25 13:42 | WPDGICN ---
Assessment and Plan Assessment and plan (1) Choledocholithiasis: Code(s): K80.50 - Calculus of bile duct without cholangitis or cholecystitis without obstruction Status: Acute Assessment and Plan: probably culprit of her presentation with sepsis, elevated liver enzymes ercp romeo more recommendations after ercp pending cultures, already on abx (2) Sepsis: Code(s): A41.9 - Sepsis, unspecified organism Status: Acute Assessment and Plan: she meets criteria for sepsis with confusion, elevated lactic acid and wbc, etc started on abx wonder if she could have cholangitis given findings- will proceed with urgent ERCP (3) Acute encephalopathy: Code(s): G93.40 - Encephalopathy, unspecified Status: Acute Assessment and Plan: from sepsis monitor and supportive care (4) Constipation: Code(s): K59.00 - Constipation, unspecified Status: Acute (5) Cerebrovascular accident: Code(s): I63.9 - Cerebral infarction, unspecified Status: Acute (6) Dementia: Code(s): F03.90 - Unspecified dementia without behavioral disturbance Status: Acute (7) History of cholecystectomy: Code(s): Z90.49 - Acquired absence of other specified parts of digestive tract Status: Acute GI Consult Note Consult date/time: 12/25/21 13:42 Reason for consult: elevated liver enzymes, choledocholithiasis HPI: Barbara Clark is a 81 year old female with past medical history of depression/ anxiety, dementia, history of stroke 09/2020 right hemispheric ( small PFO noted no closure recommended, treated with Plavix for 1 month ), Parkinson's.? Presented with encephalopathy (history obtained from records as she is confused). ER evaluation noted elevated liver enzymes with transaminases 400-800's, bili 2.5, lactic acid 3, wbc 12k. CT scan a/p reviewed and showed?choledocholithiasis with moderate intrahepatic and extrahepatic biliary duct dilatation, stool distends the rectum, left inguinal hernia containing fat, moderate-sized sliding hiatal hernia, post cholecystectomy. Admitted to floor, blood cultures pending and currently on antibiotics. Review of Systems Review of Systems: ROS unobtainable: Yes unobtainable due to mental status PMFSH Past Medical History Medical History (Updated 12/25/21 @ 13:54 by Khoa Cid MD) Acute encephalopathy Dementia Depression with anxiety Glaucoma Hyperlipidemia Osteoporosis Parkinsons disease Surgical History Surgical History (Updated 12/25/21 @ 13:54 by Khoa Cid MD) History of cholecystectomy History of tonsillectomy and adenoidectomy Family History Family History Father Tuberculosis Hypertension Lung cancer Mother Paranoid schizophrenia Mother No problems noted. Social History Social History Social History: The patient is a resident at [facility]. She has one son, Tay Clark, who is her healthcare power of deputy prosecuting attorney. Retired from office work. Lifelong nonsmoker. No alcohol or illicit substance use. Code status: Do not resuscitate. Smoking status: Unknown if ever smoked Alcohol intake: unknown Substance use: unknown Spiritual care concerns: No Meds Home Medications and Allergies Home Medications Medication Instructions Recorded Confirmed Type carbidopa 25 mg-levodopa 100 mg 1 tablet PO TID 09/13/20 12/24/21 History tablet dorzolamide 22.3 mg-timolol 6.8 1 drp EACH EYE BID glaucoma 09/13/20 12/24/21 History mg/mL eye drops latanoprost 0.005 % eye drops 1 drp EACH EYE HS glaucoma 09/13/20 12/24/21 History aspirin 81 mg tablet,delayed 81 mg PO HS 09/21/20 12/24/21 History release brimonidine 0.1 % eye drops 1 drp EACH EYE BID glaucoma 09/21/20 12/24/21 History (Alphagan P) multivitamin 1 tablet PO DAILY 09/21/20 12/24/21 His
--- NOTE | 2021-12-25 16:49 | PM.IMPN ---
Progress Note: A&P Assessment and Plan (1) Sepsis: Code(s): A41.9 - Sepsis, unspecified organism Status: Acute Assessment and Plan: Will give another L bolus given soft pressures. Start on LR 100 cc/ HR. Obtain blood cultures, may be skewed since patient already given antibiotics. potential sources include choledocholithiasis versus UTI. Choledocholithiasis management as below. UA positive, however moderate squames noted. Will obtain another UA. Check lactic . Antibiotics cefepime and Flagyl. (2) Choledocholithiasis: Code(s): K80.50 - Calculus of bile duct without cholangitis or cholecystitis without obstruction Status: Acute Assessment and Plan: GI consult. Keep patient NPO. Continue to monitor LFTs. Antibiotics as above (3) Encephalopathy: Code(s): G93.40 - Encephalopathy, unspecified Status: Acute Assessment and Plan: likely metabolic in the setting of acute infection. stroke ruled out, no focal neuro deficits and CT head showing old right hemispheric stroke. Continue to monitor mental status while treating infection (4) Constipation: Code(s): K59.00 - Constipation, unspecified Status: Acute Assessment and Plan: large stool burden noted on CT abdomen / pelvis. Dulcolax suppository ordered Additional Plan 12/25/2021 interval history: pateint with abdominal pain is found to have choledocholithiasis, patient is seen by GI and plan to perform ERCP later, patient is poor historian unable to provider detail ROS, patient son is present, aware of planned ERCP and answered all his questions, will follow up and plan, patient had a large BM this morning, will have PT/OT evaluate patient Subjective Date/time seen: 12/25/21 16:49 81-year-old female past medical history of depression/ anxiety, dementia, history of stroke 09/2020 right hemispheric ( small PFO noted no closure recommended, treated with Plavix for 1 month ), Parkinson's, HLD.? Presented with encephalopathy, last known normal was around 1300.? Patient is currently encephalopathic, unable to provide history. ? In ED, patient found to be febrile up to 100.4, slightly tachypneic, blood pressure 120s/50s.? White count normal at 5.7. other labs remarkable for potassium 3.3.? Total bili 1.7, AST / ALT 839/418, alk-phos 374.? INR normal. ? CT abdomen pelvis demonstrating moderate intrahepatic biliary duct dilation with common hepatic duct dilated to 16 mm and 2 stones in the common duct measuring up to 8 mm.? Large stool burden noted in rectum.UA positive for nitrates and mild leukocyte esterase , however moderate squames noted.? No blood cultures obtained, patient given dose of Rocephin and Flagyl.? Upon evaluation on floor, patient appears more obtunded and blood pressure now 90s/50s. 12/25/2021 interval history: pateint with abdominal pain is found to have choledocholithiasis, patient is seen by GI and plan to perform ERCP later, patient is poor historian unable to provider detail ROS, patient son is present, aware of planned ERCP and answered all his questions, will follow up and plan, patient had a large BM this morning, will have PT/OT evaluate patient Review of Systems Review of Systems: ROS unobtainable: Yes unobtainable due to mental status Exam Narrative: elderly frail Patient is comfortable, NAD HEENT: eyes are clear and none icteric LUNGS: normal respiratory effort ABD:not distended Lower extremities: no edema SKIN: nonjaundiced Neuro: grossly intact. Objective Data Vital Signs Vital Signs: Vital Signs - 24 hr 12/24/21 19:06 12/24/21 19:17 12/24/21 20:13 Temperature Pulse Rate 110 H 112 H 110 H Respiratory Rate 22 H 22 H 37 H Blood Pressure 124/55 L 128/58 L 117/46 L Pulse Oximetry 96 96 96 Oxygen Delivery Room Air Oxygen Flow Rate 12/24/21 20:00 12/24/21 20:44 12/24/21 21:32 Temperature Pulse Rate 109 H 109 H 105 H Respiratory Rate 20 20 18
--- NOTE | 2021-12-25 20:31 | PC.NURSE ---
This patient, Barbara Clark, was transferred to [325-1 ] on 12/25/21 at 2031. Personal belongings sent with patient. Report given to [ Lizzy eid]. Appropriate documentation sent with patient.
--- NOTE | 2021-12-25 20:47 | PC.NURSE ---
Patient received from IMU per bed. Report received from KEKE Colon.
[2021-12-26 06:08] VITALS: BP 105/42; PULSE 75; RESP 18; TEMP 36.5; O2SAT 94
[2021-12-26] MEDS: metroNIDAZOLE 500 MG/ISO 100ML 500 MG/100 ML BAG 100 MG IVPB ×3 (06:31→20:39)
[2021-12-26] MEDS: LACTATED RINGERS 1,000 ML 110 ML IV CONT ×2 (06:35→17:59)
[2021-12-26 07:13] LABS: Basophils Percent Auto 0.1 % (0.2-1.2); Eosinophils Absolute Auto 0.2 K/mm3 (0-0.3); Eosinophils Percent Auto 2.7 % (0-4.4); Hematocrit 34.6 % (37.0-47.0); Hemoglobin 10.9 g/dL (12.0-15.0); Immature Granulocyte Absolute 0.03 K/mm3 (0.00-0.031); Immature Granulocyte Percent A 0.4 % (0-0.5); Lymphocytes Absolute Auto 1.15 K/mm3 (0.9-3.2); Lymphocytes Percent Auto 15.4 % (18.3-44.2); Mean Corpuscular HGB Conc 31.5 g/dl (32-36); Mean Corpuscular Hemoglobin 28.8 pg (26-34); Mean Corpuscular Volume 91.5 fl (80-100); Mean Platelet Volume 11.1 fl (7.4-10.4); Monocytes Absolute Auto 0.3 K/mm3 (0.1-0.6); Monocytes Percent Auto 4.5 % (2.6-8.5); Neutrophils Absolute Auto 5.8 K/mm3 (1.3-6.7); Neutrophils Percent Auto 76.9 % (45.5-73.1); Platelet Count Result 117 k/mm3 (150-375); Red Blood Count 3.78 M/mm3 (4.2-5.4); Red Cell Distribution Width 14.1 % (11.5-14.5); White Blood Count 7.5 K/mm3 (4.5-10.0)
[2021-12-26] MEDS: PANTOPRAZOLE SODIUM IV 40 MG VIAL IV PUSH (08:29)
[2021-12-26 11:30] LABS: Alanine Aminotransferase 278 U/L (6-35); Albumin Level 2.9 g/dL (3.5-5.1); Alkaline Phosphatase 194 U/L (38-126); Anion Gap 5 mmol/L (8-16); Aspartate Amino Transferase 137 U/L (14-36); Bilirubin,Total 3.7 mg/dL (0.2-1.3); Blood Urea Nitrogen 12 mg/dL (7-17); Calcium 8.2 mg/dL (8.4-10.2); Carbon Dioxide 24 mmol/L (22-30); Chloride 107 mmol/L (98-107); Estimated CRCL calculation 53 ml/min; Estimated Glomerular Filt Rate > 60; Glucose 78 mg/dL (65-110); Potassium 5.2 mmol/L (3.4-5.0); Sodium 136 mmol/L (137-145)
--- NOTE | 2021-12-26 13:06 | P.PNAN_ITS ---
Anes - Prog Note Post-Op Date/Time: 12/26/21 13:06 Vital Signs: Last Vital Signs Temp 36.5 C 12/26/21 06:08 Pulse 75 12/26/21 06:08 Resp 18 12/26/21 06:08 BP 105/42 L 12/26/21 06:08 Pulse Ox 94 12/26/21 06:08 O2 Del Method Room Air 12/26/21 07:53 O2 Flow Rate 2 12/25/21 16:04 Pain Score (VAS): 0 I/O: Intake & Output 12/25/21 12/26/21 12/26/21 23:59 07:59 15:59 Intake Total 1150 1100 50 Output Total 30 Balance 1150 1070 50 Laboratory Tests 12/26/21 06:32 12/26/21 08:13 12/26/21 12/26/21 06:32 08:13 WBC 7.5 RBC 3.78 L Hgb 10.9 L Hct 34.6 L MCV 91.5 D MCH 28.8 MCHC 31.5 L RDW 14.1 Plt Count 117 L MPV 11.1 H Immature Gran % (Auto) 0.4 Neut % (Auto) 76.9 H Lymph % (Auto) 15.4 L [place] % (Auto) 4.5 Eos % (Auto) 2.7 Baso % (Auto) 0.1 L Lymph # (Auto) 1.15 [place] # (Auto) 0.3 Eos # (Auto) 0.2 Baso # (Auto) 0.0 Abs Immat Gran (auto) 0.03 Absolute Neuts (auto) 5.8 Absolute Nucleated RBC 0.0 Nucleated RBC % 0.0 % Immature Plt Fraction 3.0 Sodium 136 L Potassium 5.2 H Chloride 107 Carbon Dioxide 24 Anion Gap 5 L BUN 12 D Creatinine 0.70 Estim Creat Clear Calc 53 Estimated GFR > 60 Glucose 78 Calcium 8.2 L Magnesium 2.0 Total Bilirubin 3.7 H AST 137 H ALT 278 H Alkaline Phosphatase 194 H Total Protein 6.0 L Albumin 2.9 L Microbiology 12/25/21 03:02 Blood Blood Culture - Preliminary 12/25/21 03:02 Blood Blood Culture - Preliminary Patient Feedback: Patient satisfied with anesthetic care.
--- NOTE | 2021-12-26 15:57 | PM.IMPN ---
Progress Note: A&P Assessment and Plan (1) Sepsis: Code(s): A41.9 - Sepsis, unspecified organism Status: Acute Assessment and Plan: Will give another L bolus given soft pressures. Start on LR 100 cc/ HR. Obtain blood cultures, may be skewed since patient already given antibiotics. potential sources include choledocholithiasis versus UTI. Choledocholithiasis management as below. UA positive, however moderate squames noted. Will obtain another UA. Check lactic . Antibiotics cefepime and Flagyl. (2) Choledocholithiasis: Code(s): K80.50 - Calculus of bile duct without cholangitis or cholecystitis without obstruction Status: Acute Assessment and Plan: GI consult. Keep patient NPO. Continue to monitor LFTs. Antibiotics as above (3) Encephalopathy: Code(s): G93.40 - Encephalopathy, unspecified Status: Acute Assessment and Plan: likely metabolic in the setting of acute infection. stroke ruled out, no focal neuro deficits and CT head showing old right hemispheric stroke. Continue to monitor mental status while treating infection (4) Constipation: Code(s): K59.00 - Constipation, unspecified Status: Acute Assessment and Plan: large stool burden noted on CT abdomen / pelvis. Dulcolax suppository ordered Additional Plan 12/25/2021 interval history: pateint with abdominal pain is found to have choledocholithiasis, patient is seen by GI and plan to perform ERCP later, patient is poor historian unable to provider detail ROS, patient son is present, aware of planned ERCP and answered all his questions, will follow up and plan, patient had a large BM this morning, will have PT/OT evaluate patient 12/26/2021 interval history: patient with abdominal pain is found to have choledocholithiasis, patient was seen by GI and had ERCP on 12/25 and the bile duct was clean and on the sludge was removed,, patient is poor historian unable to provider detail ROS, and today patient is somnolent, on full liquid diet, clinically stable, will follow up and plan, patient had a large BM on 12/25, will have PT/OT evaluate patient Subjective Date/time seen: 12/26/21 15:57 12/26/2021 interval history: patient with abdominal pain is found to have choledocholithiasis, patient was seen by GI and had ERCP on 12/25 and the bile duct was clean and on the sludge was removed,, patient is poor historian unable to provider detail ROS, and today patient is somnolent, on full liquid diet, clinically stable, will follow up and plan, patient had a large BM on 12/25, will have PT/OT evaluate patient Review of Systems Review of Systems: ROS unobtainable: Yes unobtainable due to mental status Exam Narrative: elderly frail Patient is comfortable, NAD HEENT: eyes are clear and none icteric LUNGS: normal respiratory effort ABD:not distended Lower extremities: no edema SKIN: nonjaundiced Neuro: grossly intact. Objective Data Vital Signs Vital Signs: Vital Signs - 24 hr 12/25/21 16:04 12/25/21 16:14 12/25/21 16:24 Temperature Pulse Rate 82 84 86 Respiratory Rate 20 22 H 20 Blood Pressure 129/61 118/64 120/60 Pulse Oximetry 100 100 100 Oxygen Delivery Nasal Cannula Room Air Room Air Oxygen Flow Rate 2 12/25/21 16:51 12/25/21 16:00 12/25/21 18:00 Temperature 97.8 F Pulse Rate 85 72 Respiratory Rate 18 Blood Pressure 135/45 L Pulse Oximetry 100 100 Oxygen Delivery Room Air Oxygen Flow Rate 12/25/21 20:00 12/25/21 22:07 12/26/21 06:08 Temperature 98.8 F 97.7 F Pulse Rate 72 87 75 Respiratory Rate 18 20 18 Blood Pressure 117/44 L 105/42 L Pulse Oximetry 100 97 94 Oxygen Delivery Room Air Oxygen Flow Rate 12/26/21 07:53 Temperature Pulse Rate Respiratory Rate Blood Pressure Pulse Oximetry Oxygen Delivery Room Air Oxygen Flow Rate Intake/Output Intake/Output: Intake & Output 12/23/21 12/24/21 12/25/2112/09
[2021-12-26 16:00] VITALS: BP 123/72; PULSE 71; RESP 18; TEMP 35.9; O2SAT 95
--- NOTE | 2021-12-26 17:30 | WPDGIPROGNO ---
Progress Note: A&P Assessment and Plan (1) Choledocholithiasis: Code(s): K80.50 - Calculus of bile duct without cholangitis or cholecystitis without obstruction Status: Acute Assessment and Plan: treated with ercp yesterday- large amount of sludge removed continue iv antibiotics advance diet as tolerated trend liver enzymes (2) Sepsis: Code(s): A41.9 - Sepsis, unspecified organism Status: Acute Assessment and Plan: biliary related (3) Elevated liver enzymes: Code(s): R74.8 - Abnormal levels of other serum enzymes Status: Acute Assessment and Plan: continue to trend (4) Acute encephalopathy: Code(s): G93.40 - Encephalopathy, unspecified Status: Acute (5) Dementia: Code(s): F03.90 - Unspecified dementia without behavioral disturbance Status: Acute Subjective Date/time seen: 12/26/21 17:30 Interval history: yesterday with ercp removal of large amount of sludge and stones after sweeping duct and sphincterotomy (technically difficult because large hiatal hernia), poor appetite, still confused per staff Review of Systems Review of Systems: All systems reviewed & are unremarkable except as noted in HPI and below Exam Const: Other: elderly, frail, confused HENMT: General nose exam: Normal nares present Eyes: Pupils: Equal, round and reactive pupils present Neck: Neck: supple Resp: Effort & Inspection: normal respiratory effort Auscultation: clear to auscultation bilaterally Cardio: Rate: regular rate Rhythm: regular rhythm Other: no gallops or murmurs GI: GI Palp: Yes Soft to palpation Other: nontender, nondistended Skin: General skin exam: normal color and no rashes or lesions noted Neuro: Other: awake but confused Extrem: General: normal to inspection Objective Data Vital Signs Vital Signs: Vital Signs - 24 hr 12/25/21 18:00 12/25/21 20:00 12/25/21 22:07 Temperature 98.8 F Pulse Rate 72 72 87 Respiratory Rate 18 20 Blood Pressure 117/44 L Pulse Oximetry 100 97 Oxygen Delivery Room Air 12/26/21 06:08 12/26/21 07:53 12/26/21 16:00 Temperature 97.7 F 96.7 F L Pulse Rate 75 71 Respiratory Rate 18 18 Blood Pressure 105/42 L 123/72 Pulse Oximetry 94 95 Oxygen Delivery Room Air Intake/Output Intake/Output: Intake & Output 12/23/21 12/24/21 12/25/21 12/26/21 23:59 23:59 23:59 23:59 Intake Total 1150 2317 1280 Output Total 30 30 Balance 1150 2287 1250 Meds/Results Medications: Active Medications Generic Name Dose Route Start Last Admin Trade Name Freq PRN Reason Stop Dose Admin Bisacodyl 10 mg 12/26/21 09:00 Bisacodyl 10 Mg Suppository RECTAL QAM PRN Constipation Metronidazole 500 mg in 100 mls @ 100 mls/hr 12/25/21 06:00 12/26/21 13:45 Flagyl 500 Mg/Iso Soln 100 Ml IVPB Infused Q8H JONO Infusion Lactated Ringer's 1,000 mls @ 110 mls/hr 12/24/21 21:30 12/26/21 06:35 Lr - Lactated Ringers Iv IV CONT 110 mls/hr .Q9H6M JONO Administration Cefepime HCl 1 gm in 50 mls @ 100 mls/hr 12/25/21 12:00 12/26/21 09:00 Maxipime 1 Gm/D5w 50 Ml IVPB Infused Q12H JONO Infusion Morphine Sulfate 4 mg 12/24/21 21:27 Morphine Sulfate (*Crx) 4 Mg/Ml Inj IV PUSH Q2H PRN Pain Rated 7-10 Ondansetron HCl 4 mg 12/24/21 21:27 Ondansetron Inj 4 Mg/2 Ml Vial IV PUSH Q4H PRN Nausea Pantoprazole Sodium 40 mg 12/25/21 09:00 12/26/21 08:29 Pantoprazole Sodium Iv 40 Mg Vial IV PUSH 40 mg QAM JONO Administration Polyethylene Glycol 17 gm 12/25/21 10:03 Polyethylene Glycol 3350 17 Gm Powd.Pack PO QAM PRN Constipation Radiology Results: ITS Impressions Head CT 12/24/21 19:06 IMPRESSION: 1. Old infarct in the right basal ganglia. 2. Stable moderate nonspecific cerebral white matter disease, which likely represents chronic small vessel ischemic disease. 3. I discussed th
[2021-12-26 22:07] VITALS: BP 149/62; PULSE 85; RESP 18; TEMP 36.4; O2SAT 95
[2021-12-27] MEDS: LACTATED RINGERS 1,000 ML 110 ML IV CONT ×2 (03:05→16:26)
[2021-12-27] MEDS: metroNIDAZOLE 500 MG/ISO 100ML 500 MG/100 ML BAG 100 MG IVPB ×3 (05:00→21:33)
[2021-12-27 06:17] VITALS: BP 152/71; PULSE 88; RESP 16; TEMP 36.6; O2SAT 97
[2021-12-27 06:59] LABS: Basophils Percent Auto 0.2 % (0.2-1.2); Eosinophils Absolute Auto 0.2 K/mm3 (0-0.3); Eosinophils Percent Auto 4.1 % (0-4.4); Hematocrit 35.6 % (37.0-47.0); Hemoglobin 11.3 g/dL (12.0-15.0); Immature Granulocyte Absolute 0.02 K/mm3 (0.00-0.031); Immature Granulocyte Percent A 0.4 % (0-0.5); Immature Platelet Fraction Pct 2.7 % (0.9-11.2); Lymphocytes Absolute Auto 0.91 K/mm3 (0.9-3.2); Lymphocytes Percent Auto 17.8 % (18.3-44.2); Mean Corpuscular HGB Conc 31.7 g/dl (32-36); Mean Corpuscular Hemoglobin 28.7 pg (26-34); Mean Corpuscular Volume 90.4 fl (80-100); Mean Platelet Volume 10.6 fl (7.4-10.4); Monocytes Absolute Auto 0.2 K/mm3 (0.1-0.6); Monocytes Percent Auto 4.7 % (2.6-8.5); Neutrophils Absolute Auto 3.7 K/mm3 (1.3-6.7); Neutrophils Percent Auto 72.8 % (45.5-73.1); Platelet Count Result 123 k/mm3 (150-375); Red Blood Count 3.94 M/mm3 (4.2-5.4); Red Cell Distribution Width 13.7 % (11.5-14.5); White Blood Count 5.1 K/mm3 (4.5-10.0)
[2021-12-27 07:25] LABS: Alanine Aminotransferase 194 U/L (6-35); Albumin Level 2.8 g/dL (3.5-5.1); Alkaline Phosphatase 213 U/L (38-126); Anion Gap 6 mmol/L (8-16); Aspartate Amino Transferase 55 U/L (14-36); Bilirubin,Total 1.9 mg/dL (0.2-1.3); Blood Urea Nitrogen 7 mg/dL (7-17); Calcium 8.4 mg/dL (8.4-10.2); Carbon Dioxide 27 mmol/L (22-30); Chloride 103 mmol/L (98-107); Estimated CRCL calculation 53 ml/min; Estimated Glomerular Filt Rate > 60; Glucose 87 mg/dL (65-110); Potassium 3.2 mmol/L (3.4-5.0); Sodium 136 mmol/L (137-145)
[2021-12-27] MEDS: POTASSIUM CHLORIDE 20 MEQ TABLET 40 MEQ PO (08:39)
[2021-12-27] MEDS: PANTOPRAZOLE SODIUM IV 40 MG VIAL IV PUSH (10:02)
--- NOTE | 2021-12-27 12:32 | PM.IMPN ---
Progress Note: A&P Assessment and Plan (1) Sepsis: Code(s): A41.9 - Sepsis, unspecified organism Status: Acute Assessment and Plan: Will give another L bolus given soft pressures. Start on LR 100 cc/ HR. Obtain blood cultures, may be skewed since patient already given antibiotics. potential sources include choledocholithiasis versus UTI. Choledocholithiasis management as below. UA positive, however moderate squames noted. Will obtain another UA. Check lactic . Antibiotics cefepime and Flagyl. (2) Choledocholithiasis: Code(s): K80.50 - Calculus of bile duct without cholangitis or cholecystitis without obstruction Status: Acute Assessment and Plan: GI consult. Keep patient NPO. Continue to monitor LFTs. Antibiotics as above (3) Encephalopathy: Code(s): G93.40 - Encephalopathy, unspecified Status: Acute Assessment and Plan: likely metabolic in the setting of acute infection. stroke ruled out, no focal neuro deficits and CT head showing old right hemispheric stroke. Continue to monitor mental status while treating infection (4) Constipation: Code(s): K59.00 - Constipation, unspecified Status: Acute Assessment and Plan: large stool burden noted on CT abdomen / pelvis. Dulcolax suppository ordered Additional Plan 12/25/2021 interval history: pateint with abdominal pain is found to have choledocholithiasis, patient is seen by GI and plan to perform ERCP later, patient is poor historian unable to provider detail ROS, patient son is present, aware of planned ERCP and answered all his questions, will follow up and plan, patient had a large BM this morning, will have PT/OT evaluate patient 12/26/2021 interval history: patient with abdominal pain is found to have choledocholithiasis, patient was seen by GI and had ERCP on 12/25 and the bile duct was clean and on the sludge was removed,, patient is poor historian unable to provider detail ROS, and today patient is somnolent, on full liquid diet, clinically stable, will follow up and plan, patient had a large BM on 12/25, will have PT/OT evaluate patient. 12/27/2021 interval history: patient with abdominal pain is found to have choledocholithiasis, patient was seen by GI and had ERCP on 12/25 and the bile duct was clean and large amount of sludge was removed, her liver enzymes are trending down, patient is poor historian unable to provider detail ROS, and today patient is little more awak, was on full liquid diet advance to low fat diet, clinically stable, will follow up and plan, patient had a large BM on 12/25, will have PT/OT evaluate patient Subjective Date/time seen: 12/27/21 12:32 12/27/2021 interval history: patient with abdominal pain is found to have choledocholithiasis, patient was seen by GI and had ERCP on 12/25 and the bile duct was clean and large amount of sludge was removed, her liver enzymes are trending down, patient is poor historian unable to provider detail ROS, and today patient is little more awak, was on full liquid diet advance to low fat diet, clinically stable, will follow up and plan, patient had a large BM on 12/25, will have PT/OT evaluate patient Review of Systems Review of Systems: ROS unobtainable: Yes unobtainable due to medical condition Exam Narrative: elderly frail Patient is comfortable, NAD HEENT: eyes are clear and none icteric LUNGS: normal respiratory effort ABD:not distended Lower extremities: no edema SKIN: nonjaundiced Neuro: grossly intact. Objective Data Vital Signs Vital Signs: Vital Signs - 24 hr 12/26/21 16:00 12/26/21 22:07 12/26/21 20:00 Temperature 96.7 F L 97.6 F Pulse Rate 71 85 Respiratory Rate 18 18 Blood Pressure 123/72 149/62 H Pulse Oximetry 95 95 Oxygen Delivery Room Air 12/27/21 06:17 12/27/21 08:00 Temperature 97.8 F Pulse Rate 88 Respiratory Rate 16 Blood Pressure 152/71 H Pulse Oximetr
--- NOTE | 2021-12-27 15:46 | WPDGIPROGNO ---
Progress Note: A&P Assessment and Plan (1) Choledocholithiasis: Code(s): K80.50 - Calculus of bile duct without cholangitis or cholecystitis without obstruction Status: Acute Assessment and Plan: treated with ercp- large amount of sludge removed continue iv antibiotics advance diet as tolerated liver enzymes slowly trending down (2) Sepsis: Code(s): A41.9 - Sepsis, unspecified organism Status: Acute Assessment and Plan: biliary related and improved normal wbc still on abx (3) Elevated liver enzymes: Code(s): R74.8 - Abnormal levels of other serum enzymes Status: Acute Assessment and Plan: coming down (4) Acute encephalopathy: Code(s): G93.40 - Encephalopathy, unspecified Status: Acute Assessment and Plan: with underlying dementia (5) Dementia: Code(s): F03.90 - Unspecified dementia without behavioral disturbance Status: Acute Subjective Date/time seen: 12/27/21 15:46 Interval history: she is comfortable, poor appetite per staff Review of Systems Review of Systems: All systems reviewed & are unremarkable except as noted in HPI and below Exam Const: Other: elderly, frail, confused HENMT: General nose exam: Normal nares present Eyes: Pupils: Equal, round and reactive pupils present Neck: Neck: supple Resp: Effort & Inspection: normal respiratory effort Auscultation: clear to auscultation bilaterally Cardio: Rate: regular rate Rhythm: regular rhythm Other: no gallops or murmurs GI: GI Palp: Yes Soft to palpation Other: nontender, nondistended Skin: General skin exam: normal color and no rashes or lesions noted Neuro: Other: awake but confused Extrem: General: normal to inspection Objective Data Vital Signs Vital Signs: Vital Signs - 24 hr 12/26/21 16:00 12/26/21 22:07 12/26/21 20:00 Temperature 96.7 F L 97.6 F Pulse Rate 71 85 Respiratory Rate 18 18 Blood Pressure 123/72 149/62 H Pulse Oximetry 95 95 Oxygen Delivery Room Air 12/27/21 06:17 12/27/21 08:00 Temperature 97.8 F Pulse Rate 88 Respiratory Rate 16 Blood Pressure 152/71 H Pulse Oximetry 97 Oxygen Delivery Room Air Intake/Output Intake/Output: Intake & Output 12/24/21 12/25/21 12/26/21 12/27/21 23:59 23:59 23:59 23:59 Intake Total 1150 2317 2470 1610 Output Total 30 30 Balance 1150 2287 2440 1610 Meds/Results Medications: Active Medications Generic Name Dose Route Start Last Admin Trade Name Freq PRN Reason Stop Dose Admin Bisacodyl 10 mg 12/26/21 09:00 Bisacodyl 10 Mg Suppository RECTAL QAM PRN Constipation Metronidazole 500 mg in 100 mls @ 100 mls/hr 12/25/21 06:00 12/27/21 13:08 Flagyl 500 Mg/Iso Soln 100 Ml IVPB 100 mls/hr Q8H JONO Administration Lactated Ringer's 1,000 mls @ 110 mls/hr 12/24/21 21:30 12/27/21 06:42 Lr - Lactated Ringers Iv IV CONT Not Given .Q9H6M JONO Cefepime HCl 1 gm in 50 mls @ 100 mls/hr 12/25/21 12:00 12/27/21 09:05 Maxipime 1 Gm/D5w 50 Ml IVPB Infused Q12H JONO Infusion Morphine Sulfate 4 mg 12/24/21 21:27 Morphine Sulfate (*Crx) 4 Mg/Ml Inj IV PUSH Q2H PRN Pain Rated 7-10 Ondansetron HCl 4 mg 12/24/21 21:27 Ondansetron Inj 4 Mg/2 Ml Vial IV PUSH Q4H PRN Nausea Pantoprazole Sodium 40 mg 12/25/21 09:00 12/27/21 10:02 Pantoprazole Sodium Iv 40 Mg Vial IV PUSH 40 mg QAM JONO Administration Polyethylene Glycol 17 gm 12/25/21 10:03 Polyethylene Glycol 3350 17 Gm Powd.Pack PO QAM PRN Constipation Radiology Results: ITS Impressions Head CT 12/24/21 19:06 IMPRESSION: 1. Old infarct in the right basal ganglia. 2. Stable moderate nonspecific cerebral white matter disease, which likely represents chronic small vessel ischemic disease. 3. I discussed this case with Dr. Bowles. Chest X-Ray 12/24/21 19:43 IMPRESSION: 1. Mild atelect
[2021-12-27 16:00] VITALS: BP 129/45; PULSE 74; RESP 16; TEMP 36.8; O2SAT 97
[2021-12-27 23:55] VITALS: BP 148/67; PULSE 75; RESP 16; TEMP 36.5; O2SAT 96
[2021-12-28] MEDS: LACTATED RINGERS 1,000 ML 110 ML IV CONT ×2 (03:33→19:27)
[2021-12-28] MEDS: metroNIDAZOLE 500 MG/ISO 100ML 500 MG/100 ML BAG 100 MG IVPB ×3 (05:13→20:05)
[2021-12-28 06:12] LABS: Hematocrit 38.1 % (37.0-47.0); Hemoglobin 12.1 g/dL (12.0-15.0); Immature Platelet Fraction Pct 2.3 % (0.9-11.2); Mean Corpuscular HGB Conc 31.8 g/dl (32-36); Mean Corpuscular Hemoglobin 28.8 pg (26-34); Mean Corpuscular Volume 90.7 fl (80-100); Mean Platelet Volume 9.9 fl (7.4-10.4); Platelet Count Result 137 k/mm3 (150-375); Red Cell Distribution Width 13.8 % (11.5-14.5)
[2021-12-28 06:27] LABS: Alanine Aminotransferase 134 U/L (6-35); Albumin Level 2.8 g/dL (3.5-5.1); Alkaline Phosphatase 208 U/L (38-126); Anion Gap 7 mmol/L (8-16); Aspartate Amino Transferase 40 U/L (14-36); Bilirubin,Total 1.2 mg/dL (0.2-1.3); Blood Urea Nitrogen 5 mg/dL (7-17); Calcium 8.5 mg/dL (8.4-10.2); Carbon Dioxide 26 mmol/L (22-30); Chloride 104 mmol/L (98-107); Estimated CRCL calculation 61 ml/min; Estimated Glomerular Filt Rate > 60; Glucose 104 mg/dL (65-110); Potassium 3.3 mmol/L (3.4-5.0); Sodium 137 mmol/L (137-145)
[2021-12-28 08:00] VITALS: O2SAT 96
[2021-12-28] MEDS: PANTOPRAZOLE SODIUM IV 40 MG VIAL IV PUSH (08:48)
[2021-12-28] MEDS: POTASSIUM CHLORIDE 20 MEQ TABLET 40 MEQ PO (08:48)
--- NOTE | 2021-12-28 11:03 | PM.IMPN ---
Progress Note: A&P Assessment and Plan (1) Sepsis: Code(s): A41.9 - Sepsis, unspecified organism Status: Acute Assessment and Plan: Will give another L bolus given soft pressures. Start on LR 100 cc/ HR. Obtain blood cultures, may be skewed since patient already given antibiotics. potential sources include choledocholithiasis versus UTI. Choledocholithiasis management as below. UA positive, however moderate squames noted. Will obtain another UA. Check lactic . Antibiotics cefepime and Flagyl. (2) Choledocholithiasis: Code(s): K80.50 - Calculus of bile duct without cholangitis or cholecystitis without obstruction Status: Acute Assessment and Plan: GI consult. Keep patient NPO. Continue to monitor LFTs. Antibiotics as above (3) Encephalopathy: Code(s): G93.40 - Encephalopathy, unspecified Status: Acute Assessment and Plan: likely metabolic in the setting of acute infection. stroke ruled out, no focal neuro deficits and CT head showing old right hemispheric stroke. Continue to monitor mental status while treating infection (4) Constipation: Code(s): K59.00 - Constipation, unspecified Status: Acute Assessment and Plan: large stool burden noted on CT abdomen / pelvis. Dulcolax suppository ordered Additional Plan 12/25/2021 interval history: pateint with abdominal pain is found to have choledocholithiasis, patient is seen by GI and plan to perform ERCP later, patient is poor historian unable to provider detail ROS, patient son is present, aware of planned ERCP and answered all his questions, will follow up and plan, patient had a large BM this morning, will have PT/OT evaluate patient 12/26/2021 interval history: patient with abdominal pain is found to have choledocholithiasis, patient was seen by GI and had ERCP on 12/25 and the bile duct was clean and on the sludge was removed,, patient is poor historian unable to provider detail ROS, and today patient is somnolent, on full liquid diet, clinically stable, will follow up and plan, patient had a large BM on 12/25, will have PT/OT evaluate patient. 12/27/2021 interval history: patient with abdominal pain is found to have choledocholithiasis, patient was seen by GI and had ERCP on 12/25 and the bile duct was clean and large amount of sludge was removed, her liver enzymes are trending down, patient is poor historian unable to provider detail ROS, and today patient is little more awak, was on full liquid diet advance to low fat diet, clinically stable, will follow up and plan, patient had a large BM on 12/25, will have PT/OT evaluate patient. 12/28/2021 interval history: patient with abdominal pain is found to have choledocholithiasis, patient was seen by GI and had ERCP on 12/25 and the bile duct was clean and large amount of sludge was removed, her liver enzymes are trending down, patient is poor historian unable to provider detail ROS, and today patient is little more awake, was on full liquid diet advance to low fat diet which patient is tolerating, clinically stable, will follow up and plan, patient had a large BM on 12/25, will have PT/OT evaluate patient patient will benefit going to SNF for rehab. Subjective Date/time seen: 12/28/21 11:03 12/28/2021 interval history: patient with abdominal pain is found to have choledocholithiasis, patient was seen by GI and had ERCP on 12/25 and the bile duct was clean and large amount of sludge was removed, her liver enzymes are trending down, patient is poor historian unable to provider detail ROS, and today patient is little more awake, was on full liquid diet advance to low fat diet which patient is tolerating, clinically stable, will follow up and plan, patient had a large BM on 12/25, will have PT/OT evaluate patient patient will benefit going to SNF for rehab. Review of Systems Review of Systems: ROS unobtainable: Yes unobtainable due to medical
--- NOTE | 2021-12-28 13:29 | WPDGIPROGNO ---
Progress Note: A&P Assessment and Plan (1) Choledocholithiasis: Code(s): K80.50 - Calculus of bile duct without cholangitis or cholecystitis without obstruction Status: Acute Assessment and Plan: treated with ercp- large amount of sludge removed and liver enzymes coming down (today with normalization of bilirubin) she is eating more and is also more awake and alert probably tomorrow can discontinue antibiotics and she can go home (2) Sepsis: Code(s): A41.9 - Sepsis, unspecified organism Status: Acute Assessment and Plan: biliary related and improved resolved (3) Elevated liver enzymes: Code(s): R74.8 - Abnormal levels of other serum enzymes Status: Acute Assessment and Plan: trending down as expected this was related to biliary obstruction- already treated with ercp (4) Acute encephalopathy: Code(s): G93.40 - Encephalopathy, unspecified Status: Acute Assessment and Plan: with underlying dementia but improved (5) Dementia: Code(s): F03.90 - Unspecified dementia without behavioral disturbance Status: Acute Subjective Date/time seen: 12/28/21 13:29 Interval history: she is awake and even talking, also eating with assistance. She looks better today Review of Systems Review of Systems: All systems reviewed & are unremarkable except as noted in HPI and below Exam Const: Other: elderly, frail, awake and more alert today HENMT: General nose exam: Normal nares present Eyes: Pupils: Equal, round and reactive pupils present Neck: Neck: supple Resp: Effort & Inspection: normal respiratory effort Auscultation: clear to auscultation bilaterally Cardio: Rate: regular rate Rhythm: regular rhythm GI: GI Palp: Yes Soft to palpation Auscultation: normal bowel sounds Other: nontender, nondistended Skin: General skin exam: normal color and no rashes or lesions noted Neuro: Other: awake and she is even talking today, confused- ? baseline Extrem: General: normal to inspection Objective Data Vital Signs Vital Signs: Vital Signs - 24 hr 12/27/21 16:00 12/27/21 20:25 12/27/21 23:55 Temperature 98.2 F 97.7 F Pulse Rate 74 75 Respiratory Rate 16 16 Blood Pressure 129/45 L 148/67 H Pulse Oximetry 97 96 Oxygen Delivery Room Air 12/28/21 09:33 12/28/21 08:00 Temperature Pulse Rate Respiratory Rate Blood Pressure Pulse Oximetry 96 Oxygen Delivery Room Air Room Air Intake/Output Intake/Output: Intake & Output 12/25/21 12/26/21 12/27/21 12/28/21 23:59 23:59 23:59 23:59 Intake Total 2317 2470 2920 1850 Output Total 30 30 200 Balance 2287 2440 2720 1850 Meds/Results Medications: Active Medications Generic Name Dose Route Start Last Admin Trade Name Freq PRN Reason Stop Dose Admin Bisacodyl 10 mg 12/26/21 09:00 Bisacodyl 10 Mg Suppository RECTAL QAM PRN Constipation Metronidazole 500 mg in 100 mls @ 100 mls/hr 12/25/21 06:00 12/28/21 06:11 Flagyl 500 Mg/Iso Soln 100 Ml IVPB Infused Q8H JONO Infusion Lactated Ringer's 1,000 mls @ 110 mls/hr 12/24/21 21:30 12/28/21 10:00 Lr - Lactated Ringers Iv IV CONT 110 mls/hr .Q9H6M JONO Infusion Cefepime HCl 1 gm in 50 mls @ 100 mls/hr 12/25/21 12:00 12/28/21 08:44 Maxipime 1 Gm/D5w 50 Ml IVPB 100 mls/hr Q12H JONO Administration Morphine Sulfate 4 mg 12/24/21 21:27 Morphine Sulfate (*Crx) 4 Mg/Ml Inj IV PUSH Q2H PRN Pain Rated 7-10 Ondansetron HCl 4 mg 12/24/21 21:27 Ondansetron Inj 4 Mg/2 Ml Vial IV PUSH Q4H PRN Nausea Pantoprazole Sodium 40 mg 12/25/21 09:00 12/28/21 08:48 Pantoprazole Sodium Iv 40 Mg Vial IV PUSH 40 mg QAM JONO Administration Polyethylene Glycol 17 gm 12/25/21 10:03 Polyethylene Glycol 3350 17 Gm Powd.Pack PO QAM PRN Constipation Radiology Results: ITS Impressions Head CT 12/24/21 19:06 IMPRESSI
[2021-12-28 14:00] VITALS: BP 108/74; PULSE 73; RESP 20; TEMP 36.6; O2SAT 96
[2021-12-28 19:35] VITALS: BP 123/100; PULSE 74; RESP 18; TEMP 36.2; O2SAT 95
[2021-12-28 20:42] VITALS: O2SAT 96
[2021-12-29 03:36] VITALS: BP 137/70; PULSE 74; RESP 17; TEMP 36.1; O2SAT 98
[2021-12-29] MEDS: LACTATED RINGERS 1,000 ML 110 ML IV CONT ×2 (05:18→16:48)
[2021-12-29] MEDS: metroNIDAZOLE 500 MG/ISO 100ML 500 MG/100 ML BAG 100 MG IVPB ×3 (05:18→21:24)
[2021-12-29 06:01] LABS: Hematocrit 37.6 % (37.0-47.0); Hemoglobin 11.9 g/dL (12.0-15.0); Mean Corpuscular HGB Conc 31.6 g/dl (32-36); Mean Corpuscular Hemoglobin 28.7 pg (26-34); Mean Corpuscular Volume 90.8 fl (80-100); Mean Platelet Volume 9.9 fl (7.4-10.4); Platelet Count Result 159 k/mm3 (150-375); Red Blood Count 4.14 M/mm3 (4.2-5.4); Red Cell Distribution Width 13.8 % (11.5-14.5); White Blood Count 4.2 K/mm3 (4.5-10.0)
[2021-12-29 06:30] LABS: Alanine Aminotransferase 107 U/L (6-35); Albumin Level 2.9 g/dL (3.5-5.1); Alkaline Phosphatase 199 U/L (38-126); Anion Gap 7 mmol/L (8-16); Aspartate Amino Transferase 45 U/L (14-36); Bilirubin,Total 0.9 mg/dL (0.2-1.3); Blood Urea Nitrogen 7 mg/dL (7-17); Calcium 8.7 mg/dL (8.4-10.2); Carbon Dioxide 26 mmol/L (22-30); Chloride 103 mmol/L (98-107); Estimated CRCL calculation 61 ml/min; Estimated Glomerular Filt Rate > 60; Glucose 94 mg/dL (65-110); Potassium 3.6 mmol/L (3.4-5.0); Sodium 136 mmol/L (137-145)
--- NOTE | 2021-12-29 08:18 | WPDGIPROGNO ---
Progress Note: A&P Assessment and Plan (1) Choledocholithiasis: Code(s): K80.50 - Calculus of bile duct without cholangitis or cholecystitis without obstruction Status: Acute Assessment and Plan: treated with ercp- large amount of sludge removed and liver enzymes coming down she is eating more and is also more awake and alert she can go home today per gi standpoint, no need of more antibiotics (2) Sepsis: Code(s): A41.9 - Sepsis, unspecified organism Status: Acute Assessment and Plan: biliary related and improved resolved (3) Elevated liver enzymes: Code(s): R74.8 - Abnormal levels of other serum enzymes Status: Acute Assessment and Plan: trending down as expected this was related to biliary obstruction- already treated with ercp (4) Acute encephalopathy: Code(s): G93.40 - Encephalopathy, unspecified Status: Acute Assessment and Plan: with underlying dementia but improved (5) Dementia: Code(s): F03.90 - Unspecified dementia without behavioral disturbance Status: Acute Subjective Date/time seen: 12/29/21 08:18 Interval history: no changes, she is awake and talking Review of Systems Review of Systems: All systems reviewed & are unremarkable except as noted in HPI and below Exam Const: Other: elderly, frail, awake and alert- close to baseline? HENMT: General nose exam: Normal nares present Eyes: Pupils: Equal, round and reactive pupils present Neck: Neck: supple Resp: Effort & Inspection: normal respiratory effort Auscultation: clear to auscultation bilaterally Cardio: Rate: regular rate Rhythm: regular rhythm GI: GI Palp: Yes Soft to palpation Auscultation: normal bowel sounds Other: nontender, nondistended Skin: General skin exam: normal color and no rashes or lesions noted Neuro: Other: awake and alert, confused Extrem: General: normal to inspection Objective Data Vital Signs Vital Signs: Vital Signs - 24 hr 12/28/21 09:33 12/28/21 14:00 12/28/21 19:35 Temperature 97.9 F 97.1 F L Pulse Rate 73 74 Respiratory Rate 20 18 Blood Pressure 108/74 123/100 H Pulse Oximetry 96 95 Oxygen Delivery Room Air 12/28/21 19:55 12/28/21 20:42 12/29/21 03:36 Temperature 96.9 F L Pulse Rate 74 Respiratory Rate 17 Blood Pressure 137/70 Pulse Oximetry 96 98 Oxygen Delivery Room Air Room Air Intake/Output Intake/Output: Intake & Output 12/26/21 12/27/21 12/28/21 12/29/21 23:59 23:59 23:59 23:59 Intake Total 2470 2920 4120 3350 Output Total 30 200 Balance 2440 2720 4120 3350 Meds/Results Medications: Active Medications Generic Name Dose Route Start Last Admin Trade Name Freq PRN Reason Stop Dose Admin Bisacodyl 10 mg 12/26/21 09:00 Bisacodyl 10 Mg Suppository RECTAL QAM PRN Constipation Metronidazole 500 mg in 100 mls @ 100 mls/hr 12/25/21 06:00 12/29/21 06:18 Flagyl 500 Mg/Iso Soln 100 Ml IVPB Infused Q8H JONO Infusion Lactated Ringer's 1,000 mls @ 110 mls/hr 12/24/21 21:30 12/29/21 05:18 Lr - Lactated Ringers Iv IV CONT 110 mls/hr .Q9H6M JONO Administration Cefepime HCl 1 gm in 50 mls @ 100 mls/hr 12/25/21 12:00 12/28/21 19:57 Maxipime 1 Gm/D5w 50 Ml IVPB Infused Q12H JONO Infusion Morphine Sulfate 4 mg 12/24/21 21:27 Morphine Sulfate (*Crx) 4 Mg/Ml Inj IV PUSH Q2H PRN Pain Rated 7-10 Ondansetron HCl 4 mg 12/24/21 21:27 Ondansetron Inj 4 Mg/2 Ml Vial IV PUSH Q4H PRN Nausea Pantoprazole Sodium 40 mg 12/25/21 09:00 12/28/21 08:48 Pantoprazole Sodium Iv 40 Mg Vial IV PUSH 40 mg QAM JONO Administration Polyethylene Glycol 17 gm 12/25/21 10:03 Polyethylene Glycol 3350 17 Gm Powd.Pack PO QAM PRN Constipation Radiology Results: ITS Impressions Head CT 12/24/21 19:06 IMPRESSION: 1. Old infarct in the right basal ganglia. 2. Stable moderate
--- NOTE | 2021-12-29 12:27 | PM.IMPN ---
Progress Note: A&P Assessment and Plan (1) Sepsis: Code(s): A41.9 - Sepsis, unspecified organism Status: Acute Assessment and Plan: Will give another L bolus given soft pressures. Start on LR 100 cc/ HR. Obtain blood cultures, may be skewed since patient already given antibiotics. potential sources include choledocholithiasis versus UTI. Choledocholithiasis management as below. UA positive, however moderate squames noted. Will obtain another UA. Check lactic . Antibiotics cefepime and Flagyl. (2) Choledocholithiasis: Code(s): K80.50 - Calculus of bile duct without cholangitis or cholecystitis without obstruction Status: Acute Assessment and Plan: GI consult. Keep patient NPO. Continue to monitor LFTs. Antibiotics as above (3) Encephalopathy: Code(s): G93.40 - Encephalopathy, unspecified Status: Acute Assessment and Plan: likely metabolic in the setting of acute infection. stroke ruled out, no focal neuro deficits and CT head showing old right hemispheric stroke. Continue to monitor mental status while treating infection (4) Constipation: Code(s): K59.00 - Constipation, unspecified Status: Acute Assessment and Plan: large stool burden noted on CT abdomen / pelvis. Dulcolax suppository ordered Additional Plan 12/25/2021 interval history: pateint with abdominal pain is found to have choledocholithiasis, patient is seen by GI and plan to perform ERCP later, patient is poor historian unable to provider detail ROS, patient son is present, aware of planned ERCP and answered all his questions, will follow up and plan, patient had a large BM this morning, will have PT/OT evaluate patient 12/26/2021 interval history: patient with abdominal pain is found to have choledocholithiasis, patient was seen by GI and had ERCP on 12/25 and the bile duct was clean and on the sludge was removed,, patient is poor historian unable to provider detail ROS, and today patient is somnolent, on full liquid diet, clinically stable, will follow up and plan, patient had a large BM on 12/25, will have PT/OT evaluate patient. 12/27/2021 interval history: patient with abdominal pain is found to have choledocholithiasis, patient was seen by GI and had ERCP on 12/25 and the bile duct was clean and large amount of sludge was removed, her liver enzymes are trending down, patient is poor historian unable to provider detail ROS, and today patient is little more awak, was on full liquid diet advance to low fat diet, clinically stable, will follow up and plan, patient had a large BM on 12/25, will have PT/OT evaluate patient. 12/28/2021 interval history: patient with abdominal pain is found to have choledocholithiasis, patient was seen by GI and had ERCP on 12/25 and the bile duct was clean and large amount of sludge was removed, her liver enzymes are trending down, patient is poor historian unable to provider detail ROS, and today patient is little more awake, was on full liquid diet advance to low fat diet which patient is tolerating, clinically stable, will follow up and plan, patient had a large BM on 12/25, will have PT/OT evaluate patient patient will benefit going to SNF for rehab. 12/29/2021 interval history: patient with abdominal pain is found to have choledocholithiasis, patient was seen by GI and had ERCP on 12/25 and the bile duct was clean and large amount of sludge was removed, her liver enzymes are trending down, patient is poor historian unable to provider detail ROS, and today patient is little more awake, was on full liquid diet advance to low fat diet which patient is tolerating, clinically stable, will follow up and plan, patient had a large BM on 12/25 since then patient has not had a BM, passing gas, denies any abdomen pain, N or V, will give colace and Miralax, will monitor, patient bedbound, will discharge patient tomorrow. Subjective Date/time seen: 12/29/21
[2021-12-29 14:00] VITALS: BP 144/95; PULSE 70; RESP 20; TEMP 36.3; O2SAT 98
[2021-12-29] MEDS: polyethylene glycoL 3350 17 GM POWD.PACK PO (14:01)
[2021-12-29] MEDS: PANTOPRAZOLE SODIUM IV 40 MG VIAL IV PUSH (14:02)
[2021-12-29] MEDS: DOCUSATE SODIUM 100 MG CAPSULE PO (14:02)
[2021-12-29 20:00] VITALS: PULSE 70; RESP 20; O2SAT 98
[2021-12-29 22:00] VITALS: BP 151/61; PULSE 73; RESP 18; TEMP 36.7; O2SAT 95
[2021-12-30] MEDS: metroNIDAZOLE 500 MG/ISO 100ML 500 MG/100 ML BAG 100 MG IVPB ×2 (05:34→12:04)
[2021-12-30] MEDS: LACTATED RINGERS 1,000 ML 110 ML IV CONT (05:39)
[2021-12-30 06:00] VITALS: BP 131/74; PULSE 66; RESP 17; TEMP 36.4; O2SAT 99
[2021-12-30 06:43] LABS: Hematocrit 38.5 % (37.0-47.0); Hemoglobin 12.5 g/dL (12.0-15.0); Mean Corpuscular HGB Conc 32.5 g/dl (32-36); Mean Corpuscular Hemoglobin 28.7 pg (26-34); Mean Corpuscular Volume 88.3 fl (80-100); Mean Platelet Volume 9.7 fl (7.4-10.4); Platelet Count Result 170 k/mm3 (150-375); Red Blood Count 4.36 M/mm3 (4.2-5.4); Red Cell Distribution Width 13.6 % (11.5-14.5); White Blood Count 4.5 K/mm3 (4.5-10.0)
[2021-12-30] MEDS: BISACODYL 10 MG SUPPOSITORY RECTAL (06:47)
[2021-12-30 07:01] LABS: Alanine Aminotransferase 86 U/L (6-35); Albumin Level 3.1 g/dL (3.5-5.1); Alkaline Phosphatase 184 U/L (38-126); Anion Gap 6 mmol/L (8-16); Aspartate Amino Transferase 48 U/L (14-36); Bilirubin,Total 0.7 mg/dL (0.2-1.3); Blood Urea Nitrogen 6 mg/dL (7-17); Calcium 8.5 mg/dL (8.4-10.2); Carbon Dioxide 27 mmol/L (22-30); Chloride 105 mmol/L (98-107); Estimated CRCL calculation 61 ml/min; Estimated Glomerular Filt Rate > 60; Glucose 93 mg/dL (65-110); Potassium 3.6 mmol/L (3.4-5.0); Sodium 138 mmol/L (137-145)
--- NOTE | 2021-12-30 07:27 | PC.NURSE ---
called pharmacy for IV protonix 40 mg IV push, awaiting arrival of medication
[2021-12-30 07:39] VITALS: BP 108/56
--- NOTE | 2021-12-30 07:39 | PC.NURSE ---
manual bp 108/56 this morning
[2021-12-30 08:00] VITALS: PULSE 66; RESP 17; O2SAT 99
--- NOTE | 2021-12-30 08:29 | PC.NURSE ---
second call to pharmacy for IV push protonix 40 mg
[2021-12-30] MEDS: PANTOPRAZOLE SODIUM IV 40 MG VIAL IV PUSH (09:13)
[2021-12-30] MEDS: polyethylene glycoL 3350 17 GM POWD.PACK PO (10:44)
--- NOTE | 2021-12-30 13:10 | PC.NURSE ---
large bm this shift, pt ok to discharged once having bm per Md Ashraft
--- NOTE | 2021-12-30 13:14 | PC.NURSE ---
pt to discharge to [facility] swab collected and sent to lab. family informed of discharge.
--- NOTE | 2021-12-30 13:16 | PM.DS ---
DS: Admitting Diagnosis Discharge Date 07/02/2021 Admitting Diagnosis encephalopathy DS: Discharge Diagnosis Discharge Diagnosis (1) Sepsis: Code(s): A41.9 - Sepsis, unspecified organism Status: Acute Assessment and Plan: Will give another L bolus given soft pressures. Start on LR 100 cc/ HR. Obtain blood cultures, may be skewed since patient already given antibiotics. potential sources include choledocholithiasis versus UTI. Choledocholithiasis management as below. UA positive, however moderate squames noted. Will obtain another UA. Check lactic . Antibiotics cefepime and Flagyl. (2) Choledocholithiasis: Code(s): K80.50 - Calculus of bile duct without cholangitis or cholecystitis without obstruction Status: Acute Assessment and Plan: GI consult. Keep patient NPO. Continue to monitor LFTs. Antibiotics as above (3) Encephalopathy: Code(s): G93.40 - Encephalopathy, unspecified Status: Acute Assessment and Plan: likely metabolic in the setting of acute infection. stroke ruled out, no focal neuro deficits and CT head showing old right hemispheric stroke. Continue to monitor mental status while treating infection (4) Constipation: Code(s): K59.00 - Constipation, unspecified Status: Acute Assessment and Plan: large stool burden noted on CT abdomen / pelvis. Dulcolax suppository ordered DS: Summary Hospital Course Reason for hospitalization: Encephalopathy Narrative: ?81-year-old female past medical history of depression/ anxiety, dementia, history of stroke 09/2020 right hemispheric ( small PFO noted no closure recommended, treated with Plavix for 1 month ), Parkinson's, HLD.? Presented with encephalopathy, last known normal was around 1300.? Patient is currently encephalopathic, unable to provide history. ? In ED, patient found to be febrile up to 100.4, slightly tachypneic, blood pressure 120s/50s.? White count normal at 5.7. other labs remarkable for potassium 3.3.? Total bili 1.7, AST / ALT 839/418, alk-phos 374.? INR normal. ? CT abdomen pelvis demonstrating moderate intrahepatic biliary duct dilation with common hepatic duct dilated to 16 mm and 2 stones in the common duct measuring up to 8 mm.? Large stool burden noted in rectum.UA positive for nitrates and mild leukocyte esterase , however moderate squames noted.? No blood cultures obtained, patient given dose of Rocephin and Flagyl.? Upon evaluation on floor, patient appears more obtunded and blood pressure now 90s/50s. Hospital Course: patient with abdominal pain is found to have choledocholithiasis, patient was seen by GI and had ERCP on 12/25 and the bile duct was clean and large amount of sludge was removed, her liver enzymes are trending down, patient is poor historian unable to provider detail ROS, and today patient is little more awake, was on full liquid diet advance to low fat diet which patient is tolerating, ? clinically stable,? will follow up and plan, patient had a large BM on 12/25 since then patient has not had a BM, passing gas, denies any abdomen pain, N or V, will give colace and Miralax, will monitor, patient bedbound, will discharge patient tomorrow.? today patient remains clinically stable had a BM, will to tolerate her diet [facility] Time Spent with Patient Time attestation: Total time spent providing and/or coordinating discharge services: Exam Narrative: elderly frail Patient is comfortable, NAD HEENT: eyes are clear and none icteric LUNGS: normal respiratory effort ABD:not distended Lower extremities: no edema SKIN: nonjaundiced Neuro: grossly intact. DS: Data Data Completed and Pending Labs on day of discharge: Labs from last 24 hours 12/30/21 12/30/21 06:20 06:20 WBC 4.5 RBC 4.36 Hgb 12.5 Hct 38.5 MCV 88.3 MCH 28.7 MCHC 32.5 RDW 13.6 Plt Count 170 MPV 9.7 Sodium
--- NOTE | 2021-12-30 13:27 | PC.NURSE ---
report called to [facility] [phone], report given to Nathaly rodriguez at [facility].
[2021-12-30 13:39] LABS: EDCOVIDSCREEN Negative (Negative)
--- NOTE | 2021-12-30 13:43 | PC.NURSE ---
attempting to call report to [facility]rea was unable to get a hold of nurse, informed to call [phone]
--- NOTE | 2021-12-30 13:55 | PC.NURSE ---
finally gave report to Nathaly at [facility]. Pt to transport via [facility]
--- NOTE | 2021-12-30 14:31 | PC.NURSE ---
report given to [facility], [facility] to transport to [facility].
== END 2021-12-30 14:45 | DRG 871 ==
LOC: ANHED 21:23 → ANH3MED 22:04 → ANHIMU 12-25 09:25 → ANH3MEDSUR 12-25 22:34 → ANHIMU 12-26 12:08 → ANH3MEDSUR 12-26 12:08
PROVIDERS: Emergency Medicine; Internal Medicine Gastroenterology; Admitting Provider Internal Medicine; Emergency Provider Emergency Medicine; PCP Family Medicine; Visit Provider Family Medicine
PROC: 0FC98ZZ Extirpation of Matter from Common Bile Duct, Via Natural or Artificial Opening Endoscopic (ICD-10-PCS; CPT 43260; principal; 2021-12-25 14:30)
DX: A41.9 Sepsis, unspecified organism (principal); G93.41 Metabolic encephalopathy; K80.31 Calculus of bile duct with cholangitis, unspecified, with obstruction; K44.9 Diaphragmatic hernia without obstruction or gangrene; K59.00 Constipation, unspecified; G20 Parkinson's disease; F02.80 Dementia in other diseases classified elsewhere, unspecified severity, without behavioral disturbance, psychotic disturbance, mood disturbance, and anxiety; H40.9 Unspecified glaucoma; Z20.822 Contact with and (suspected) exposure to COVID-19; R82.90 Unspecified abnormal findings in urine; Z79.82 Long term (current) use of aspirin; Z74.01 Bed confinement status; Z90.49 Acquired absence of other specified parts of digestive tract; Z86.73 Personal history of transient ischemic attack (TIA), and cerebral infarction without residual deficits
CPT/HCPCS: 36415; 36600; 70450; 71045; 74177; 74329; 80053; 81001; 82805; 82948; 83605; 83690; 83735; 84484; 85025; 85027; 85055; 85610; 85730; 87040; 87426; 93005; 96361; 96365; 96375; 97165; 99285; A9270; C9113; C9803; J0131; J0330; J0692; J0696; J2405; J2704; J3010; J3480; J7030; J7040; J7120; Q9967; U0003; U0005